=== PATIENT | male | born 1940 | race Caucasian/White ===

== ENCOUNTER 2016-09-02 13:13 | Inpatient (IN) | payer OTHER ==
[2016-09-02] MEDS ORDERED: morphine CARPU-JECT 4 MG/1 ML DISP.SYRIN IVPUSH ONE ×3 (13:26→20:30)
[2016-09-02] MEDS ORDERED: ONDANSETRON 4 MG/2 ML VIAL IVPUSH ONE (13:26)
--- NOTE | 2016-09-02 13:26 | PDOC ---
History of Present Illness - General History Source: Patient, Family Exam Limitations: No Limitations - History of Present Illness Initial Comments: 09/02/16 13:47 The patient is a 76 year old male with a significant past medical history of CHF , hypertension, stage IV prostate cancer, and CVA, sent from home hospice to the Emergency Department with difficulty breathing and back pain. The patients family reports that this morning the patients hospice nurse suggested that he be sent to the ER due to his difficulty breathing. The patients family admits that he was moaning in pain, having trouble breathing, and had an elevated blood pressure. The patient admits that he currently takes Percocet for back pain, though he admits to stomach pain secondary to the Percocet. The patients family states that he took Percocet, aspirin, and Lasix about one hour ago, prior to arrival. The patient has been in hospice care for a few months. The patient denies chest pain, or palpitations. Patient denies fever, cough, and chills. Patient denies nausea, vomiting, and diarrhea. PCP: in-home hospice Engine Installer: Dr. Xavier <Juliane Garcia - Last Filed: 09/02/16 17:18> <Dipika Alvarado - Last Filed: 09/02/16 18:50> - General Chief Complaint: Shortness of Breath Stated Complaint: SOB Time Seen by Provider: 09/02/16 13:21 Past History <Juliane Garcia - Last Filed: 09/02/16 17:18> - Past Medical History Cancer: Yes (PROSTATE CANCER,SKIN CANCER) HTN: Yes - Surgical History Abdominal Surgery: Yes (COLON RESECTION) - Immunization History Immunization Up to Date: Yes - Psycho/Social/Smoking Cessation Hx Suicidal Ideation: No Smoking Status: Yes Smoking History: Smoker current status UNK Years of Tobacco Use: 30 (quit 20 years ago) Have you smoked in the past 12 months: No Number of Cigarettes Smoked Daily: 0 If you are a former smoker, when did you quit?: 25 years ago Hx Alcohol Use: No Drug/Substance Use Hx: No Substance Use Type: None Hx Substance Use Treatment: No <Dipika Alvarado - Last Filed: 09/02/16 18:50> - Past Medical History Allergies/Adverse Reactions: Allergies Allergy/AdvReac Type Severity Reaction Status Date / Time No Known Allergies Allergy Verified 12/25/15 04:22 Home Medications: Ambulatory Orders Aspirin Coated [Ecotrin -] 325 mg PO DAILY #0 tablet. 03/14/12 Valsartan [Diovan] 80 mg PO DAILY 12/25/15 Furosemide [Lasix -] 40 mg PO BID #60 tablet 12/30/15 Alprazolam [Xanax] 0.25 mg PO BID 09/02/16 Oxycodone HCl/Acetaminophen [Percocet 5-325 mg Tablet] 1 tab PO Q6H 09/02/16 Review of Systems - Review of Systems Able to Perform ROS?: Yes Comments:: 09/02/16 13:47 GENERAL/CONSTITUTIONAL: + high blood pressure. No fever or chills. No weakness. HEAD, EYES, EARS, NOSE AND THROAT: No change in vision. No ear pain or discharge. No sore throat. CARDIOVASCULAR: + difficulty breathing. No chest pain. RESPIRATORY: No cough, wheezing, or hemoptysis. GASTROINTESTINAL: No nausea, vomiting, diarrhea or constipation. GENITOURINARY: No dysuria, frequency, or change in urination. MUSCULOSKELETAL: + back pain. No joint or muscle swelling or pain. No neck. SKIN: No rash NEUROLOGIC: No headache, vertigo, loss of consciousness, or change in strength/ sensation. ENDOCRINE: No increased thirst. No abnormal weight change. HEMATOLOGIC/LYMPHATIC: No anemia, easy bleeding, or history of blood clots. ALLERGIC/IMMUNOLOGIC: No hives or skin allergy. <Juliane Garcia - Last Filed: 09/02/16 17:18> *Physical Exam - Vital Signs Last Vital Signs Temp Pulse Resp BP Pulse Ox 97.7 F 158 H 24 130/96 95 09/02/16 13:25 09/02/16 13:25 09/02/16 13:25 09/02/16 13:25 09/02/16 13:25 <Juliane Garcia - Last Filed: 09/02/16 17:18> - Physical Exam Comments: GENERAL: Awake, alert, and fully oriented, in no acute distress HEAD: No signs of trauma EYES: PERRLA, EOMI, sclera anicteric, conjunctiva clear ENT: Auricles normal inspection, hearing grossly normal, nares patent, oropharynx clear without exudates. Moist mucosa NECK: Normal ROM, supple, no lymphadenopathy, JVD, or masses LUNGS: Dec air entry at bases B/L. No wheezes, and no crackles HEART: Tachycardic, normal S1 and S2, no murmurs, rubs or gallops ABDOMEN: Soft, nontender, normoactive bowel sounds. No guarding, no rebound. No masses EXTREMITIES: Normal range of motion, no edema. No clubbing or cyanosis. No cords, erythema, or tenderness NEUROLOGICAL: Cranial nerves II through XII grossly intact. Normal speech, normal gait SKIN: Warm, Dry, normal turgor, no rashes or lesions noted. <Dipika Alvarado - Last Filed: 09/02/16 18:50> ED Treatment Course - LABORATORY CBC & Chemistry Diagram: 09/02/16 14:15 09/02/16 15:45 - RADIOLOGY Radiograph Interpretation: 09/02/16 15:13 Chest XRay As reviewed by Dr. Rahul Kern IMPRESSION: Airspace opacities in bilateral lower lung zones. Right pleural effusion is suggested. <Juliane Garcia - Last Filed: 09/02/16 17:18> - LABORATORY CBC & Chemistry Diagram: 09/02/16 14:15 09/02/16 15:45 - RADIOLOGY Radiology Studies Ordered: Category Date Time Status CHEST X-RAY PORTABLE* [RAD] Stat Radiology 09/02/16 13:20 Ordered <Dipika Alvarado - Last Filed: 09/02/16 18:50> Medical Decision Making - Medical Decision Making 09/02/16 15:06 Dr. Xavier was called at his office at 2:41. Awaiting call back. 09/02/16 15:46 Dr. Barr returned call and spoke to Dr. Alvarado about the patient's care. Dr. Torres was called at her office at 3:47. Awaiting call back. 09/02/16 17:01 Dr. Torres was called at her office at 4:19. Awaiting call back. 09/02/16 17:18 Dr. Torres was called at her cell at 5:[address] Alvarado about the patient's care. <Juliane Garcia - Last Filed: 09/02/16 17:18> - Critical Care Time Total Critical Care Time (minutes): 35 Critical Care Statement: The care of this patient involved high complexity decision making to prevent further life threatening deterioration of the patient 's condition and/or to evalute & treat vital organ system(s) failure or risk of failure. - Medical Decision Making Patient's initial EKG appeared to be sinus tach. Heart rate was ranging between 130s-160s. He has history of severe CHF with very low EF (~14% on last echo). Did not give CCB or B-evelin initially, for risk of worsening his condition if it was compensatory for CHF. He was more comfortable with BiPAP and pain meds. CXR appeared fluid-overloaded. Trop was positive. Discussed with Dr. Roman, who came to evaluate patient. As she was about to go into his room, HR dropped to 80s, at which time it became apparent that he had SVT. Will admit, as he is not comfortable going back to hospice in this condition. Will admit him for medical treatment and stabilization, as this is potentially reversible and will affect his quality of life. Then can reassess hospice placement again. D/w Dr. Torres- will admit to tele, as HR is now in the 80s. <Dipika Alvarado - Last Filed: 09/02/16 18:50> *DC/Admit/Observation/Transfer - Attestations Scribe Attestion: 09/02/16 13:49 Documentation prepared by Juliane Garcia, acting as medical educator for Dipika Alvardao MD. <Juliane Garcia - Last Filed: 09/02/16 17:18> - Discharge Dispostion Admit: Yes <Dipika Alvarado - Last Filed: 09/02/16 18:50> Diagnosis at time of Disposition: SVT (supraventricular tachycardia) CHF (congestive heart failure) Qualifiers: Congestive heart failure type: unspecified congestive heart failure type Congestive heart failure chronicity: acute on chronic Qualified Code(s): I50.9 - Heart failure, unspecified - Discharge Dispostion Condition at time of disposition: Guarded
[2016-09-02 13:28] VITALS: BMI 22.3
[2016-09-02] MEDS ORDERED: morphine CARPU-JECT 4 MG/1 ML DISP.SYRIN ONE (13:45)
[2016-09-02] MEDS ORDERED: ONDANSETRON 4 MG/2 ML VIAL ONE (13:45)
[2016-09-02] MEDS ORDERED: FUROSEMIDE 40 MG/4 ML INJECTABLE VIAL IVPUSH ONE (13:51)
[2016-09-02 14:29] LABS: BASOPHIL 0.7 % (0-2.0); MCH 30.9 pg (25.7-33.7); MCHC 33.5 g/dl (32.0-35.9); MEAN CELL VOLUME 92.1 fl (80-96); MEAN PLT VOLUME 8.4 fl (7.5-11.1); NEUTROPHILS 76.9 % (42.8-82.8); PLATELET COUNT 264 K/MM3 (134-434); RDW 14.8 % (11.9-15.9); WHITE BLOOD COUNT 10.2 K/mm3 (4.0-10.0)
[2016-09-02 15:00] LABS: ALBUMIN 3.5 g/dl (3.4-5.0); ANION GAP 13 (8-16); BILIRUBIN,TOTAL 0.8 mg/dL (0.2-1.0); CALCIUM 8.9 mg/dL (8.5-10.1); CO2 25 mmol/L (21-32); COCKROFT - GAULT 62.49; GLUCOSE,RANDOM 93 mg/dL (74-106); SGPT/ALT 20 U/L (12-78); TOT PROT 7.8 g/dl (6.4-8.2)
[2016-09-02 15:13] LABS: ALK PHOS 134 U/L (45-117); TROPONIN I 3.92 ng/ml (0.00-0.05)
--- NOTE | 2016-09-02 16:01 | EKG ---
Test Reason : Blood Pressure : / mmHG Vent. Rate : 137 BPM Atrial Rate : 131 BPM P-R Int : 000 ms QRS Dur : 094 ms QT Int : 370 ms P-R-T Axes : 000 016 047 degrees QTc Int : 558 ms SUPRAVENTRICULAR TACHYCARDIA NONSPECIFIC ST ABNORMALITY ABNORMAL ECG WHEN COMPARED WITH ECG OF 01-FEB-2016 19:54, VENT. RATE HAS INCREASED BY 53 BPM Confirmed by LUCIO CARBAJAL MD ([id number]) on 09/02/2016 4:01:31 PM Referred By: Confirmed By:LUCIO CARBAJAL MD
--- NOTE | 2016-09-02 16:03 | EKG ---
Test Reason : Blood Pressure : / mmHG Vent. Rate : 149 BPM Atrial Rate : 149 BPM P-R Int : 176 ms QRS Dur : 088 ms QT Int : 202 ms P-R-T Axes : 038 018 231 degrees QTc Int : 318 ms SUPRAVENTRICULAR TACHYCARDIA MINIMAL VOLTAGE CRITERIA FOR LVH, MAY BE NORMAL VARIANT MARKED ST ABNORMALITY, POSSIBLE INFERIOR SUBENDOCARDIAL INJURY ABNORMAL ECG Confirmed by LUCIO CARBAJAL MD ([id number]) on 09/02/2016 4:03:39 PM Referred By: Confirmed By:LUCIO CARBAJAL MD
--- NOTE | 2016-09-02 16:06 | CON.CARD ---
Cardiology Consult (text) - Consultation Consultation Note: cc: sob hpi: 76 m on hospice with hx systolic cardiomypathy, atach/aflutter, prostate ca on chemo/hormones, cva, htn, hld here with sob/tachycardia noted to have nstemi. Woke up from sleep with acute onset of sob with diaphoresis the evening prior to admission. Recently with mild increase in lower extremity edema. Also with recent fall and since then + back pain. chronic abdominal pain, refuses to take metoprolol. No cp, palps, dizzy, loc, pnd, orthopnea. Started on bipap and given morphine in ER with spontaneous conversion from SVT to SR. pmh: per hpi psh: nc social: ex tob fam: no premature cad scd ros: per hpi; no nvd, cough, fever, nasal congestion, GABRIEL, vision changes, wt loss, hematuria, rash meds: Ambulatory Orders Aspirin Coated [Ecotrin -] 325 mg PO DAILY #0 tablet. 03/14/12 Leuprolide Acetate [Eligard] 7.5 mg ASDIR 12/25/15 Valsartan [Diovan] 80 mg PO DAILY 12/25/15 Furosemide [Lasix -] 40 mg PO BID #60 tablet 12/30/15 Metoprolol Succinate [Toprol XL -] 75 mg PO BID #60 tab.sr.24h 12/30/15 pe: Vital Signs - 24 hr 09/02/16 09/02/16 09/02/16 13:13 13:25 14:04 Temperature 97.7 F Pulse Rate 158 H 158 H 151 H Pulse Rate [ Right] Respiratory 24 Rate Blood Pressure 130/96 Blood Pressure [Right Arm] O2 Sat by Pulse 95 95 100 Oximetry (%) 09/02/16 15:31 Temperature Pulse Rate Pulse Rate [ 75 Right] Respiratory 29 H Rate Blood Pressure Blood Pressure 145/100 [Right Arm] O2 Sat by Pulse 100 Oximetry (%) Intake & Output 08/31/16 09/01/16 09/02/16 09/03/16 07:59 07:59 07:59 07:59 Weight 160 lb nad, no jvd on bipap RRR, s1s2 no mrg minimal bibasilar crackles, nl eff aaox3 1+ le edema bl, no c/c pos dp pt no jaundice diaphoresis abd soft + tenderness, nd pos bs CBC, BMP 09/02/16 14:15 Laboratory Tests 02/01/16 09/02/16 18:32 14:15 Total Bilirubin 0.8 AST TNP ALT 20 D Alkaline Phosphatase 134 H D Creatine Kinase TNP Troponin I 3.92 H* D B-Natriuretic Peptide 5263.49 H 83011.34 H Albumin 3.5 ecg 09/02: SVT 149 bpm, inferolateral STD cxr: bibasilar opacities. Rt pl effusion. echo 12/2015: sev dec lvef, global hk, nl lv size, nl rv, mod mr, mild tr a/p: NSTEMI - demand vs. ACS. Patient is in hospice. Had long discussion regarding risk benefit of AC for ACS. Decline heparin drip due to continuous IV and frequent lab draws. Will think about lovenox. Uncertain about the bleeding risk and longer half life for reversal. Amenable to ASA. - Counseled that if patient has flat troponin trend will not treat as ACS, but if troponins rise overnight, will need to make a decision regarding use of lovenox in am. - ASA, statin. - patient currently declines metoprolol b/c of GI discomfort will add on if needed overnight. con't home valsartan 80 mg/day - repeat echo acute exacerbation of systolic chf: - cardiomyopathy first diagnosed 2015, ? tachymyopathy from asympt rapid AFL. dr givens discussed further ischemic w/u (nuclear stress test, cath) with pt and daughter on past admit and they declined further testing given his advanced prostate cancer/poor prognosis. - previously diuresed with lasix 40 iv bid, will initiate same regimen. SVT/ prior h/o AFL with 2:1 > variable conduction--rapid HR (130s) -CHADS VASC 6--on prior admit had extensive discussion with pt and family about competing risks of stroke and bleeding; --> concern over bleeding side effects and declined AC. -Here with SVT to 140's-150's --> spontaneous conversion to SR. - patient declining toprol due to side effects. Will resume if needed. electrolyte monitoring. htn: - home meds hld: - statin prostate Ca: -per h/o CVA/TIA: -family confirms this, ? details Goals of care - patient is in hospice. Ongoing discussions with patient and family regarding risk/benefit of any interventions.
[2016-09-02] MEDS ORDERED: FUROSEMIDE 40 MG/4 ML INJECTABLE VIAL ONE (16:43)
[2016-09-03 00:59] LABS: TROPONIN I 6.85 ng/ml (0.00-0.05)
--- NOTE | 2016-09-03 01:02 | HP ---
Admitting History and Physical - Admission History of Present Illness: The patient is a 76 year old male with a significant past medical history of CHF , hypertension, stage IV prostate cancer, and CVA, sent from home hospice to the Emergency Department with difficulty breathing and back pain. The patients family reports that this morning the patients hospice nurse suggested that he be sent to the ER due to his difficulty breathing. The patients family admits that he was moaning in pain, having trouble breathing, and had an elevated blood pressure. The patient admits that he currently takes Percocet for back pain, though he admits to stomach pain secondary to the Percocet. History Source: Patient, Medical Record - Past Medical History BENEFITS REPRESENTATIVE: Yes: CVA (Right ) Cardiovascular: Yes: HTN Pulmonary: Yes: COPD Gastrointestinal: Yes: Constipation, Diverticulitis, Peptic Ulcer Disease Hepatobiliary: Yes: Cholelithiasis Renal/: Yes: Other (Prostate cancer treated with RT seeds and now hormonaltherapy (Leuprolide) for metastatic disease) Heme/Onc: Yes: Other (Metastatic prostate CA to bone) Psych: Yes: Anxiety - Past Surgical History Past Surgical History: Yes: Appendectomy, Colectomy (sigmoid colectomy for diverticulitis with simultaneous appendectomy) - Advance Directives Advance Directives: Yes: Health Care Proxy - Smoking History Smoking history: Smoker current status UNK Have you smoked in the past 12 months: No Aproximately how many cigarettes per day: 0 If you are a former smoker, when did you quit?: 25 years ago - Alcohol/Substance Use Hx Alcohol Use: No - Social History ADL: Family Assistance Occupation: retired History of Recent Travel: No Home Medications - Allergies Allergies/Adverse Reactions: Allergies Allergy/AdvReac Type Severity Reaction Status Date / Time No Known Allergies Allergy Verified 12/25/15 04:22 - Home Medications Home Medications: Ambulatory Orders Aspirin Coated [Ecotrin -] 325 mg PO DAILY #0 tablet. 03/14/12 Valsartan [Diovan] 80 mg PO DAILY 12/25/15 Furosemide [Lasix -] 40 mg PO BID #60 tablet 12/30/15 Alprazolam [Xanax] 0.25 mg PO BID 09/02/16 Docusate Sodium [Colace -] 100 mg PO DAILY 09/02/16 Esomeprazole Magnesium [Nexium 24Hr] 20 mg PO DAILY 09/02/16 Oxycodone HCl/Acetaminophen [Percocet 5-325 mg Tablet] 1 tab PO Q6H 09/02/16 Family Disease History - Family Disease History Family History: Unable to Obtain Family Disease History: Diabetes: Mother ( 57 CHF), Heart Disease: Mother Review of Systems - Review of Systems Constitutional: reports: Loss of Appetite, Weakness Eyes: reports: No Symptoms HENT: reports: No Symptoms Neck: reports: No Symptoms Cardiovascular: reports: Shortness of Breath Respiratory: reports: SOB Gastrointestinal: reports: No Symptoms Musculoskeletal: reports: Back Pain Physical Examination Vital Signs: Vital Signs Temperature 98.4 F 09/02/16 22:00 Pulse Rate 89 09/02/16 22:00 Respiratory Rate 20 09/02/16 22:00 Blood Pressure 157/88 09/02/16 22:00 O2 Sat by Pulse Oximetry (%) 94 L 09/02/16 21:00 Constitutional: Yes: Other (Pale) Eyes: Yes: WNL HENT: Yes: WNL Neck: Yes: WNL Cardiovascular: Yes: Tachycardia Respiratory: Yes: Rales Gastrointestinal: Yes: WNL, Normal Bowel Sounds, Soft Edema: LLE: Trace, RLE: Trace Neurological: Yes: WNL ...Motor Strength: WNL Problem List - Problems (1) SVT (supraventricular tachycardia) Assessment/Plan: Monitor on tele Code(s): I47.1 - SUPRAVENTRICULAR TACHYCARDIA (2) NSTEMI (non-ST elevated myocardial infarction) Assessment/Plan: Cont to monitor tropnin/cpk As per cardio Check echo Code(s): I21.4 - NON-ST ELEVATION (NSTEMI) MYOCARDIAL INFARCTION (3) CHF (congestive heart failure) Assessment/Plan: Acute on chronic systolic heart failuer Cont IV lasix Monitor electrolytes Cardio consult Check echo Code(s): I50.9 - HEART FAILURE, UNSPECIFIED Qualifiers: Congestive heart failure type: unspecified congestive heart failure type Congestive heart failure chronicity: acute on chronic Qualified Code(s ): I50.9 - Heart failure, unspecified (4) HLD (hyperlipidemia) Assessment/Plan: Cont lipitor Code(s): E78.5 - HYPERLIPIDEMIA, UNSPECIFIED (5) HTN (hypertension) Assessment/Plan: Pt has been refusing meds Code(s): I10 - ESSENTIAL (PRIMARY) HYPERTENSION (6) Prostate cancer metastatic to bone Code(s): C61 - MALIGNANT NEOPLASM OF PROSTATE C79.51 - SECONDARY MALIGNANT NEOPLASM OF BONE
[2016-09-03] MEDS ORDERED: OXYCODONE/APAP 5/325MG COMBO TABLET PO PRN (01:48)
[2016-09-03] MEDS ORDERED: oxyCODONE HCL 5 MG TABLET PO PRN (03:39)
[2016-09-03] MEDS ORDERED: VALSARTAN 80 MG TABLET (UD) PO ONE (03:45)
[2016-09-03] MEDS ORDERED: METOPROLOL SUCCINATE 25 MG TAB.SR.24H (FP) PO ONE (03:45)
[2016-09-03] MEDS: FUROSEMIDE 40 MG/4 ML INJECTABLE VIAL IVPUSH SCH ×2 (07:05→13:42)
[2016-09-03 07:18] LABS: BASOPHIL 0.5 % (0-2.0); EOSINOPHIL 1.8 % (0-4.5); MCH 30.8 pg (25.7-33.7); MCHC 33.5 g/dl (32.0-35.9); MEAN CELL VOLUME 91.8 fl (80-96); MEAN PLT VOLUME 7.7 fl (7.5-11.1); NEUTROPHILS 77.4 % (42.8-82.8); PLATELET COUNT 226 K/MM3 (134-434); RDW 14.3 % (11.9-15.9); WHITE BLOOD COUNT 9.8 K/mm3 (4.0-10.0)
[2016-09-03 07:54] LABS: ALBUMIN 3.2 g/dl (3.4-5.0); ANION GAP 8 (8-16); CALCIUM 9.1 mg/dL (8.5-10.1); CO2 32 mmol/L (21-32); COCKROFT - GAULT 60.15; CREATININE 1.1 mg/dL (0.7-1.3); GLUCOSE,RANDOM 106 mg/dL (74-106); SGOT/AST 83 U/L (15-37)
[2016-09-03] MEDS ORDERED: NITROGLYCERIN 25MG/D5W 250ML 250 ML IVPB SCH (08:00)
[2016-09-03 08:09] LABS: ALK PHOS 127 U/L (45-117); BILIRUBIN,TOTAL 0.7 mg/dL (0.2-1.0); SGPT/ALT 18 U/L (12-78); TOT PROT 6.8 g/dl (6.4-8.2)
[2016-09-03 08:57] LABS: TROPONIN I 4.09 ng/ml (0.00-0.05)
[2016-09-03] MEDS: HEPARIN NA (PORCINE) 5,000 UNITS/ML 1ML VIAL SQ SCH ×3 (09:41→22:00)
[2016-09-03] MEDS: PANTOPRAZOLE 20 MG TABLET (FP) PO SCH (09:43)
[2016-09-03] MEDS: ALPRAZolam 0.25 MG TABLET PO SCH ×3 (09:44→22:00)
[2016-09-03] MEDS: ASPIRIN 325 MG ENTERIC COATED TABLET (FP) PO SCH (09:44)
[2016-09-03] MEDS: VALSARTAN 80 MG TABLET (UD) PO SCH ×2 (09:44→09:58)
[2016-09-03] MEDS ORDERED: METOPROLOL SUCCINATE 25 MG TAB.SR.24H (FP) PO SCH (10:00)
[2016-09-03] MEDS ORDERED: DOCUSATE SODIUM 100 MG CAPSULE (FP) PO SCH (10:00)
--- NOTE | 2016-09-03 11:05 | PN ---
Progress Note (short form) - Note Progress Note: cc: nstemi hpi: no cp palps, +sob but better, +dizzy, no loc; bp still elevated and refusing po meds due to upsetting his stomach; also refusing hep/lovenox injections or drip, no cigs Current Medications Generic Name Dose Route Start Last Admin Trade Name Freq PRN Reason Stop Dose Admin Acetaminophen 325 mg 09/03/16 03:39 Tylenol - PO Q6H PRN PAIN Alprazolam 0.25 mg 09/03/16 10:00 09/03/16 09:59 Xanax - PO Not Given BID E[place]LE Aspirin 325 mg 09/03/16 10:00 09/03/16 09:44 Ecotrin - PO 325 mg DAILY EAG[place] Administration Atorvastatin Calcium 20 mg 09/03/16 22:00 Lipitor - PO HS EAGLE Clonidine HCl 0.2 mg 09/03/16 10:45 Catapres Tts Patch - TD Q7D@1000 EAGLE Furosemide 40 mg 09/03/16 06:00 09/03/16 07:05 Lasix Injection - IVPUSH 40 mg BID@0600,1400 E[place] Administration Heparin Sodium (Porcine) 5,000 unit 09/03/16 10:00 09/03/16 09:59 Heparin - SQ Not Given BID EAGLE Oxycodone HCl 5 mg 09/03/16 03:39 Roxicodone - PO Q6H PRN PAIN Pantoprazole Sodium 20 mg 09/03/16 10:00 09/03/16 09:43 Protonix - PO 20 mg DAILY EAGLE Administration Vital Signs Temp 97.3 F L 09/03/16 02:00 Pulse 94 H 09/03/16 06:00 Resp 20 09/03/16 06:00 BP 189/101 09/03/16 06:00 Pulse Ox 94 L 09/02/16 21:00 Intake & Output 09/02/16 09/02/16 09/03/16 11:59 23:59 11:59 Output Total 750 Balance -750 Weight 160 lb 169 lb 6.4 oz Output: Urine 750 Void 750 Other: Voiding Method Urinal Bedside Commode Height 5 ft 11 in Body Mass Index (BMI) 22.3 Weight Measurement Method Standing Scale Weight Measurement Method Standing Scale nad, no jvd on bipap RRR, s1s2 no mrg minimal bibasilar crackles, nl eff aaox3 1+ le edema bl, no c/c pos dp pt no jaundice diaphoresis abd soft + tenderness, nd pos bs Laboratory Last Values WBC 9.8 K/mm3 (4.0-10.0) 09/03/16 05:35 RBC 4.27 M/mm3 (4.00-5.60) 09/03/16 05:35 Hgb 13.2 GM/dL (11.7-16.9) 09/03/16 05:35 Hct 39.2 % (35.4-49) 09/03/16 05:35 MCV 91.8 fl (80-96) 09/03/16 05:35 MCHC 33.5 g/dl (32.0-35.9) 09/03/16 05:35 RDW 14.3 % (11.9-15.9) 09/03/16 05:35 Plt Count 226 K/MM3 (134-434) 09/03/16 05:35 MPV 7.7 fl (7.5-11.1) 09/03/16 05:35 Neutrophils % 77.4 % (42.8-82.8) 09/03/16 05:35 Lymphocytes % 9.4 % (8-40) 09/03/16 05:35 Monocytes % 10.9 % (3.8-10.2) H 09/03/16 05:35 Eosinophils % 1.8 % (0-4.5) 09/03/16 05:35 Basophils % 0.5 % (0-2.0) 09/03/16 05:35 Sodium 140 mmol/L (136-145) 09/03/16 05:35 Potassium 3.8 mmol/L (3.5-5.1) 09/03/16 05:35 Chloride 100 mmol/L (98-107) 09/03/16 05:35 Carbon Dioxide 32 mmol/L (21-32) D 09/03/16 05:35 Anion Gap 8 (8-16) 09/03/16 05:35 BUN 28 mg/dL (7-18) H 09/03/16 05:35 Creatinine 1.1 mg/dL (0.7-1.3) 09/03/16 05:35 Creat Clearance w eGFR > 60 (>60) 09/03/16 05:35 Random Glucose 106 mg/dL (74-106) 09/03/16 05:35 Calcium 9.1 mg/dL (8.5-10.1) 09/03/16 05:35 Total Bilirubin 0.7 mg/dL (0.2-1.0) 09/03/16 05:35 AST 83 U/L (15-37) H D 09/03/16 05:35 ALT 18 U/L (12-78) 09/03/16 05:35 Alkaline Phosphatase 127 U/L (45-117) H 09/03/16 05:35 Creatine Kinase 254 IU/L (39-308) D 09/03/16 05:35 Creatine Kinase Index 5.1 % (0.0-5.0) H 09/02/16 23:00 CK-MB (CK-2) 16.023 ng/ml (0.5-3.6) H 09/02/16 23:00 CK-MB (CK-2) Rel Index Cancelled 09/02/16 23:00 Troponin I 4.09 ng/ml (0.00-0.05) H* D 09/03/16 05:35 B-Natriuretic Peptide 73089.34 pg/ml (5-450) H 09/02/16 14:15 Total Protein 6.8 g/dl (6.4-8.2) 09/03/16 05:35 Albumin 3.2 g/dl (3.4-5.0) L 09/03/16 05:35 ecg 09/02: SVT 149 bpm, inferolateral STD cxr: bibasilar opacities. Rt pl effusion. echo 12/2015: sev dec lvef, global hk, nl lv size, nl rv, mod mr, mild tr tele: sr (nsvt 4 beats) a/p: NSTEMI - rise and fall of trops c/w nstemi - no cp at present - pt refusing po meds and hep gtt or lovenox - d/w family who wants pt comfort care only and also does not want hep gtt/ lovenox - echo done, pending - cont tele, asa, statin - refuses arb, bb - pall care consult as goals of care need to be addressed acute exacerbation of systolic chf: - cardiomyopathy first diagnosed 2015, ? tachymyopathy from asympt rapid AFL. dr givens discussed further ischemic w/u (nuclear stress test, cath) with pt and daughter on past admit and they declined further testing given his advanced prostate cancer/poor prognosis. - previously diuresed with lasix 40 iv bid, will cont same here, cr stable. SVT/ prior h/o AFL with 2:1 > variable conduction--rapid HR (130s): -CHADS VASC 6--on prior admit had extensive discussion with pt and family about competing risks of stroke and bleeding; --> concern over bleeding side effects and declined AC. -Here with SVT to 140's-150's --> spontaneous conversion to SR. -patient declining toprol due to side effects. -cont tele htn: - pt refusing po meds. will try clonidine patch. hld: - statin if pt allows prostate Ca: -per h/o CVA/TIA: -family confirms this, ? details Goals of care - patient is in hospice. Ongoing discussions with patient and family regarding risk/benefit of any interventions.
[2016-09-03] MEDS ORDERED: cloNIDine-TTS 0.2 MG/24 HOURS PATCH.TDWK TD SCH (12:00)
[2016-09-03] MEDS: ACETAMINOPHEN 325 MG TABLET (FP) PO PRN (22:00)
[2016-09-03] MEDS: ATORVASTATIN CA 20 MG TABLET (FP) PO SCH (22:00)
[2016-09-04] MEDS ORDERED: METOPROLOL TARTRATE 5 MG/5 ML VIAL ONE (02:19)
[2016-09-04] MEDS ORDERED: METOPROLOL TARTRATE 5 MG/5 ML VIAL IVPB ONE (02:30)
[2016-09-04] MEDS: FUROSEMIDE 40 MG/4 ML INJECTABLE VIAL IVPUSH SCH ×2 (06:22→15:37)
[2016-09-04] MEDS: ASPIRIN 325 MG ENTERIC COATED TABLET (FP) PO SCH (09:47)
[2016-09-04] MEDS: HEPARIN NA (PORCINE) 5,000 UNITS/ML 1ML VIAL SQ SCH ×2 (09:47→21:47)
[2016-09-04] MEDS: PANTOPRAZOLE 20 MG TABLET (FP) PO SCH (09:47)
[2016-09-04] MEDS: ALPRAZolam 0.25 MG TABLET PO SCH ×2 (09:47→21:48)
[2016-09-04] MEDS ORDERED: oxyCODONE HCL 5 MG TABLET PO PRN (11:59)
--- NOTE | 2016-09-04 13:22 | PN ---
Progress Note (short form) - Note Progress Note: cc: nstemi hpi: no cp palps, sob, dizziness. ambulating. + back pain and stomach discomfort persists. today states he is willing to take valsartan. no cigs Current Medications Acetaminophen (Tylenol -) 325 mg PO Q6H PRN PRN Reason: PAIN Last Admin: 09/03/16 22:00 Dose: 325 mg Alprazolam (Xanax -) 0.25 mg PO BID [facility] Last Admin: 09/04/16 09:47 Dose: 0.25 mg Aspirin (Ecotrin -) 325 mg PO DAILY [facility] Last Admin: 09/04/16 09:47 Dose: 325 mg Atorvastatin Calcium (Lipitor -) 20 mg PO HS [facility] Last Admin: 09/03/16 22:00 Dose: Not Given Clonidine HCl (Catapres Tts Patch -) 0.2 mg TD Q7D@1000 [facility] Last Admin: 09/03/16 13:42 Dose: 0.2 mg Furosemide (Lasix Injection -) 40 mg IVPUSH BID@0600,1400 [facility] Last Admin: 09/04/16 06:22 Dose: 40 mg Heparin Sodium (Porcine) (Heparin -) 5,000 unit SQ BID [facility] Last Admin: 09/04/16 09:47 Dose: 5,000 unit Oxycodone HCl (Roxicodone -) 10 mg PO Q6H PRN PRN Reason: PAIN Pantoprazole Sodium (Protonix -) 20 mg PO DAILY [facility] Last Admin: 09/04/16 09:47 Dose: 20 mg Vital Signs - 24 hr 09/03/16 09/03/16 09/03/16 15:18 18:00 21:00 Temperature 98.4 F 97.4 F L Pulse Rate 88 85 Respiratory 20 20 20 Rate Blood Pressure 127/70 115/65 O2 Sat by Pulse 95 Oximetry (%) 09/03/16 09/04/16 09/04/16 22:00 02:00 02:34 Temperature 97.9 F 97.9 F Pulse Rate 94 H 149 H 144 H Respiratory 18 20 Rate Blood Pressure 107/62 113/68 113/62 O2 Sat by Pulse Oximetry (%) 09/04/16 09/04/16 09/04/16 06:46 09:00 09:15 Temperature 98.1 F 98 F Pulse Rate 133 H 140 H Respiratory 16 24 24 Rate Blood Pressure 135/76 100/58 O2 Sat by Pulse 96 Oximetry (%) 09/04/16 09/04/16 09/04/16 09:16 10:51 12:00 Temperature Pulse Rate 140 H Respiratory 22 Rate Blood Pressure 90/50 105/49 O2 Sat by Pulse 96 Oximetry (%) Intake & Output 09/02/16 09/03/16 09/04/16 09/05/16 07:59 07:59 07:59 07:59 Intake Total 220 Output Total 750 600 Balance -750 -380 Weight 169 lb 6.4 oz nad, no jvd RRR, s1s2 no mrg minimal bibasilar crackles, nl eff aaox3 no le edema bl, no c/c pos dp pt no jaundice diaphoresis abd soft + tenderness, nd pos bs no CBC, BMP ecg 09/02: SVT 149 bpm, inferolateral STD cxr: bibasilar opacities. Rt pl effusion. echo 12/2015: sev dec lvef, global hk, nl lv size, nl rv, mod mr, mild tr tele: sr with intermittent svt, pac's chest CT: report pending. reviewed images, minimal rt pleural effusion a/p: 76 m on hospice with hx systolic cardiomypathy, atach/aflutter, prostate ca on chemo/hormones, cva, htn, hld here with sob/tachycardia noted to have nstemi. NSTEMI - rise and fall of trops c/w nstemi - no cp at present - pt refusing po meds and hep gtt or lovenox - d/w family who wants pt comfort care only and also does not want hep gtt/ lovenox - echo done, pending - cont tele, asa, statin - has been refusing arb, bb - pall care consult as goals of care need to be addressed acute exacerbation of systolic chf: - cardiomyopathy first diagnosed 2015, ? tachymyopathy from asympt rapid AFL. dr givens discussed further ischemic w/u (nuclear stress test, cath) with pt and daughter on past admit and they declined further testing given his advanced prostate cancer/poor prognosis. - previously diuresed with lasix 40 iv bid, given same here. - 09/04 bp running low, no further LE edema. will hold further diuresis. Repeat bmp in am and reassess need for further IV diuresis vs. transition back to prior po regimen 40 mg/day SVT/ prior h/o AFL with 2:1 > variable conduction--rapid HR (130s): -CHADS VASC 6--on prior admit had extensive discussion with pt and family about competing risks of stroke and bleeding; --> concern over bleeding side effects and declined AC. -Here with SVT to 140's-150's --> spontaneous conversion to SR. -patient declining toprol due to side effects. - intermittent SVT on tele, self-limited episodes. Can give PRN IV metoprolol if needed. -cont tele htn: - pt refusing po meds. --> started clonidine patch. - 09/04 bp now running low, will stop clonidine patch. Patient today states he is amenable to resuming home valsartan 80 mg/day. If in the future refuses again, can also consider ntg patch. hld: - statin if pt allows prostate Ca: -per h/o CVA/TIA: -family confirms this, ? details Goals of care - patient is in hospice. Ongoing discussions with patient and family regarding risk/benefit of any interventions.
[2016-09-04] MEDS: oxyCODONE HCL 5 MG TABLET PO PRN (21:47)
[2016-09-04] MEDS: ACETAMINOPHEN 325 MG TABLET (FP) PO PRN (21:47)
[2016-09-04] MEDS: ATORVASTATIN CA 20 MG TABLET (FP) PO SCH (21:48)
[2016-09-05] MEDS: ALPRAZolam 0.25 MG TABLET PO SCH ×2 (12:16→22:11)
[2016-09-05] MEDS: HEPARIN NA (PORCINE) 5,000 UNITS/ML 1ML VIAL SQ SCH ×2 (12:16→22:10)
[2016-09-05] MEDS: PANTOPRAZOLE 20 MG TABLET (FP) PO SCH (12:16)
[2016-09-05] MEDS: ASPIRIN 325 MG ENTERIC COATED TABLET (FP) PO SCH (12:16)
--- NOTE | 2016-09-05 13:37 | CONSULT ---
Consult Consult Specialty:: Oncology Reason for Consultation:: Metastatic prostate cancer - History of Present Illness Chief Complaint: History obtained from family members. Has prostate cancer approx 4 years, initially treated with local RTX, more recently diagnosed with metastatic skeletal disease, had been on hormonal therapy, poorly tolerated ( abdominal pain), all stopped about 6 months ago, and patient placed on hospice. Returns to ER for SOB, attributed to CHF exacerbation, and possible NSTEMI - History Source History Provided By: Patient, Family Member Limitations to Obtaining History: Poor Historian - Past Medical History PARKING CASHIER: Yes: CVA (Right ) Cardio/Vascular: Yes: HTN Pulmonary: Yes: COPD Gastrointestinal: Yes: Constipation, Diverticulitis, Peptic Ulcer Disease Hepatobiliary: Yes: Cholelithiasis Renal/: Yes: Other (Prostate cancer treated with RT seeds and now hormonaltherapy (Leuprolide) for metastatic disease) - Past Surgical History Past Surgical History: Yes: Appendectomy, Colectomy (sigmoid colectomy for diverticulitis with simultaneous appendectomy) - Alcohol/Substance Use Hx Alcohol Use: No - Smoking History Smoking history: Smoker current status UNK Have you smoked in the past 12 months: No Aproximately how many cigarettes per day: 0 If you are a former smoker, when did you quit?: 25 years ago - Social History Usual Living Arrangement: With Child ADL: Family Assistance Occupation: retired History of Recent Travel: No Home Medications - Allergies Allergies/Adverse Reactions: Allergies Allergy/AdvReac Type Severity Reaction Status Date / Time No Known Allergies Allergy Verified 12/25/15 04:22 - Home Medications Home Medications: Ambulatory Orders Aspirin Coated [Ecotrin -] 325 mg PO DAILY #0 tablet. 03/14/12 Valsartan [Diovan] 80 mg PO DAILY 12/25/15 Furosemide [Lasix -] 40 mg PO BID #60 tablet 12/30/15 Alprazolam [Xanax] 0.25 mg PO BID 09/02/16 Docusate Sodium [Colace -] 100 mg PO DAILY 09/02/16 Esomeprazole Magnesium [Nexium 24Hr] 20 mg PO DAILY 09/02/16 Oxycodone HCl/Acetaminophen [Percocet 5-325 mg Tablet] 1 tab PO Q6H 09/02/16 Family Disease History - Family Disease History Family Disease History: Diabetes: Mother ( 57 CHF), Heart Disease: Mother Review of Systems - Review of Systems Constitutional: reports: Weakness Respiratory: reports: SOB on Exertion Gastrointestinal: reports: Abdominal Pain Musculoskeletal: reports: Back Pain Neurological: reports: Unsteady Gait Physical Exam Vital Signs: Vital Signs Temperature 97.9 F 09/05/16 06:00 Pulse Rate 71 09/05/16 06:00 Respiratory Rate 16 09/05/16 06:00 Blood Pressure 143/85 09/05/16 06:00 O2 Sat by Pulse Oximetry (%) 100 09/04/16 21:00 Constitutional: Yes: Calm, Pallor Eyes: Yes: WNL Neck: Yes: Supple, Trachea Midline Cardiovascular: Yes: Regular Rate and Rhythm, S1, S2 Respiratory: Yes: Regular, CTA Bilaterally Gastrointestinal: Yes: Normal Bowel Sounds, Soft Musculoskeletal: Yes: Back Pain, Joint Stiffness Edema: Yes Edema: LLE: Trace, RLE: Trace (Appearnace of recent diuresis.) Neurological: Yes: Alert, Oriented, Unsteady Gait Psychiatric: Yes: Other Labs: CBC, BMP 09/03/16 05:35 09/03/16 05:35 Imaging - Results Cat Scan: Pending Assessment/Plan Metastatic prostate cancer, with known skeletal lesions, including known thoracic lesions. Has been off hormonal therapy for past 6 months at least, by choice. Unclear whether his disease is hormone refractory, and whether hormonal therapy options have been exhausted. Not a candidate for systemic chemotherapy. Warrants review, to determine whether appropriate systemic options are available. Significant QOL issue at this time is back pain - warrants rad onc consult to determine whether any benefit for palliative localized RTX. Also troubled by ongoing abdominal pain. Recommend GI consult, to determine whether any options for palliation exist. Goals of care need careful consideration, noting expected benefit, or harm, of any proposed investigation or intervention, in this patient with poor cardiac prognosis, and with poor tolerance of prior [id number] interventions.
--- NOTE | 2016-09-05 14:21 | PN ---
Progress Note (short form) - Note Progress Note: cc: nstemi s: no cp palps, sob, dizziness. ambulating. + back pain and stomach discomfort persists. today states he is willing to take valsartan. refused blood draw this morning. no cigs Current Medications Acetaminophen (Tylenol -) 325 mg PO Q6H PRN PRN Reason: PAIN Last Admin: 09/04/16 21:47 Dose: 325 mg Alprazolam (Xanax -) 0.25 mg PO BID [facility] Last Admin: 09/05/16 12:16 Dose: 0.25 mg Aspirin (Ecotrin -) 325 mg PO DAILY [facility] Last Admin: 09/05/16 12:16 Dose: 325 mg Atorvastatin Calcium (Lipitor -) 20 mg PO HS [facility] Last Admin: 09/04/16 21:48 Dose: Not Given Heparin Sodium (Porcine) (Heparin -) 5,000 unit SQ BID [facility] Last Admin: 09/05/16 12:16 Dose: Not Given Oxycodone HCl (Roxicodone -) 5 mg PO Q6H PRN Last Admin: 09/04/16 21:47 Dose: 5 mg Pantoprazole Sodium (Protonix -) 20 mg PO DAILY [facility] Last Admin: 09/05/16 12:16 Dose: 20 mg Vital Signs - 24 hr 09/04/16 09/04/16 09/04/16 17:00 21:00 22:12 Temperature 96.9 F L 98.1 F Pulse Rate 77 78 Respiratory 20 20 18 Rate Blood Pressure 102/49 109/52 O2 Sat by Pulse 100 Oximetry (%) 09/05/16 09/05/16 02:00 06:00 Temperature 98.2 F 97.9 F Pulse Rate 71 71 Respiratory 20 16 Rate Blood Pressure 126/67 143/85 O2 Sat by Pulse Oximetry (%) Intake & Output 09/03/16 09/04/16 09/05/16 09/06/16 07:59 07:59 07:59 07:59 Intake Total 220 300 Output Total 750 600 Balance -750 -380 300 Weight 169 lb 6.4 oz 175 lb 6 oz nad, no jvd RRR, s1s2 no mrg ctab, nl eff aaox3 no le edema bl, no c/c pos dp pt no jaundice diaphoresis abd soft + tenderness, nd pos bs no CBC, BMP ecg 09/02: SVT 149 bpm, inferolateral STD cxr: bibasilar opacities. Rt pl effusion. echo 12/2015: sev dec lvef, global hk, nl lv size, nl rv, mod mr, mild tr tele: sr with freq pac's, pvc's chest CT: report pending. reviewed images, minimal rt pleural effusion a/p: 76 m on hospice with hx systolic cardiomypathy, atach/aflutter, prostate ca on chemo/hormones, cva, htn, hld here with sob/tachycardia noted to have nstemi. NSTEMI - rise and fall of trops c/w nstemi - no cp at present - pt refusing po meds and hep gtt or lovenox - d/w family who wants pt comfort care only and also does not want hep gtt/ lovenox - echo done, pending report - cont tele, asa, statin - has been refusing bb. con't arb - pall care consult as goals of care need to be addressed acute exacerbation of systolic chf/sob: - cardiomyopathy first diagnosed 2015, ? tachymyopathy from asympt rapid AFL. dr givens discussed further ischemic w/u (nuclear stress test, cath) with pt and daughter on past admit and they declined further testing given his advanced prostate cancer/poor prognosis. - previously diuresed with lasix 40 iv bid, given same here. - 09/04 bp running low, no further LE edema. will hold further diuresis. Repeat bmp in am and reassess need for further IV diuresis vs. transition back to prior po regimen 40 mg/day - 09/05: Now appears euvolemic. Unable to reassess bmp (pt refusing blood draws ). Patient is not aware that he takes 40 mg PO lasix daily at home. Will consider giving equivalent dose via IV tomorrow. chest CT report pending. SVT/ prior h/o AFL with 2:1 > variable conduction--rapid HR (130s): -CHADS VASC 6--on prior admit had extensive discussion with pt and family about competing risks of stroke and bleeding; --> concern over bleeding side effects and declined AC. -Here with SVT to 140's-150's --> spontaneous conversion to SR. -patient declining toprol due to side effects. - 09/04 intermittent SVT on tele, self-limited episodes. Can give PRN IV metoprolol if needed. - 09/05: no further episodes of SVT. -cont tele htn: - pt refusing po meds. --> started clonidine patch. - 09/04 bp now running low, will stop clonidine patch. Patient today states he is amenable to resuming home valsartan 80 mg/day. If in the future refuses again, can also consider ntg patch. - 09/05: bp now normalized. Will resume home valsartan. hld: - statin if pt allows prostate Ca: -per h/o CVA/TIA: -family confirms this, ? details Goals of care - patient is in hospice. Ongoing discussions with patient and family regarding risk/benefit of any interventions. stable from a CV perspective.
[2016-09-05] MEDS: VALSARTAN 80 MG TABLET (UD) PO SCH (16:00)
[2016-09-05] MEDS: oxyCODONE HCL 5 MG TABLET PO PRN (20:48)
--- NOTE | 2016-09-05 21:06 | PN ---
Progress Note, Physician History of Present Illness: Pt and family still requiring alot of support - Current Medication List Current Medications: Active Medications Acetaminophen (Tylenol -) 325 mg PO Q6H PRN PRN Reason: PAIN Last Admin: 09/04/16 21:47 Dose: 325 mg Alprazolam (Xanax -) 0.25 mg PO BID [facility] Last Admin: 09/05/16 12:16 Dose: 0.25 mg Aspirin (Ecotrin -) 325 mg PO DAILY [facility] Last Admin: 09/05/16 12:16 Dose: 325 mg Atorvastatin Calcium (Lipitor -) 20 mg PO HS [facility] Last Admin: 09/04/16 21:48 Dose: Not Given Heparin Sodium (Porcine) (Heparin -) 5,000 unit SQ BID [facility] Last Admin: 09/05/16 12:16 Dose: Not Given Oxycodone HCl (Roxicodone -) 5 mg PO Q6H PRN Last Admin: 09/05/16 20:48 Dose: 5 mg Pantoprazole Sodium (Protonix -) 20 mg PO DAILY [facility] Last Admin: 09/05/16 12:16 Dose: 20 mg Valsartan (Diovan -) 80 mg PO DAILY [facility] Last Admin: 09/05/16 16:00 Dose: 80 mg - Objective Vital Signs: Vital Signs Temperature 98 F 09/05/16 14:52 Pulse Rate 75 09/05/16 14:52 Respiratory Rate 18 09/05/16 14:52 Blood Pressure 130/70 09/05/16 14:52 O2 Sat by Pulse Oximetry (%) 97 09/05/16 12:00 Constitutional: Yes: Anxious Eyes: Yes: WNL HENT: Yes: WNL Neck: Yes: WNL Cardiovascular: Yes: Tachycardia Respiratory: Yes: Rales Gastrointestinal: Yes: WNL, Normal Bowel Sounds, Soft Edema: LLE: Trace, RLE: Trace Labs: CBC, BMP 09/03/16 05:35 09/03/16 05:35 Problem List - Problems (1) CHF (congestive heart failure) Code(s): I50.9 - HEART FAILURE, UNSPECIFIED Qualifiers: Congestive heart failure type: unspecified congestive heart failure type Congestive heart failure chronicity: acute on chronic Qualified Code(s ): I50.9 - Heart failure, unspecified (2) HLD (hyperlipidemia) Code(s): E78.5 - HYPERLIPIDEMIA, UNSPECIFIED (3) HTN (hypertension) Code(s): I10 - ESSENTIAL (PRIMARY) HYPERTENSION (4) NSTEMI (non-ST elevated myocardial infarction) Code(s): I21.4 - NON-ST ELEVATION (NSTEMI) MYOCARDIAL INFARCTION (5) Prostate cancer metastatic to bone Code(s): C61 - MALIGNANT NEOPLASM OF PROSTATE C79.51 - SECONDARY MALIGNANT NEOPLASM OF BONE (6) SVT (supraventricular tachycardia) Code(s): I47.1 - SUPRAVENTRICULAR TACHYCARDIA
[2016-09-05] MEDS: ATORVASTATIN CA 20 MG TABLET (FP) PO SCH (22:11)
[2016-09-06] MEDS: ALPRAZolam 0.25 MG TABLET PO SCH ×2 (10:32→22:12)
[2016-09-06] MEDS: VALSARTAN 80 MG TABLET (UD) PO SCH (10:32)
[2016-09-06] MEDS: ASPIRIN 325 MG ENTERIC COATED TABLET (FP) PO SCH (10:32)
[2016-09-06] MEDS: HEPARIN NA (PORCINE) 5,000 UNITS/ML 1ML VIAL SQ SCH ×2 (10:34→22:12)
[2016-09-06] MEDS: PANTOPRAZOLE 20 MG TABLET (FP) PO SCH (10:34)
--- NOTE | 2016-09-06 15:12 | PN ---
Progress Note, Physician History of Present Illness: Pt c/o back pain - Current Medication List Current Medications: Active Medications Acetaminophen (Tylenol -) 325 mg PO Q6H PRN PRN Reason: PAIN Last Admin: 09/04/16 21:47 Dose: 325 mg Alprazolam (Xanax -) 0.25 mg PO BID [facility] Last Admin: 09/06/16 10:32 Dose: 0.25 mg Aspirin (Ecotrin -) 325 mg PO DAILY [facility] Last Admin: 09/06/16 10:32 Dose: 325 mg Atorvastatin Calcium (Lipitor -) 20 mg PO HS [facility] Last Admin: 09/05/16 22:11 Dose: Not Given Heparin Sodium (Porcine) (Heparin -) 5,000 unit SQ BID [facility] Last Admin: 09/06/16 10:34 Dose: Not Given Oxycodone HCl (Roxicodone -) 5 mg PO Q6H PRN Last Admin: 09/05/16 20:48 Dose: 5 mg Pantoprazole Sodium (Protonix -) 20 mg PO DAILY [facility] Last Admin: 09/06/16 10:34 Dose: 20 mg Valsartan (Diovan -) 80 mg PO DAILY [facility] Last Admin: 09/06/16 10:32 Dose: 80 mg - Objective Vital Signs: Vital Signs Temperature 98.6 F 09/06/16 14:00 Pulse Rate 72 09/06/16 14:00 Respiratory Rate 20 09/06/16 14:00 Blood Pressure 141/67 09/06/16 14:00 O2 Sat by Pulse Oximetry (%) 99 09/05/16 21:00 Constitutional: Yes: Anxious Eyes: Yes: WNL HENT: Yes: WNL Neck: Yes: WNL Cardiovascular: Yes: WNL, Regular Rate and Rhythm Respiratory: Yes: Diminished Gastrointestinal: Yes: WNL, Normal Bowel Sounds, Soft Labs: CBC, BMP 09/03/16 05:35 09/03/16 05:35 Problem List - Problems (1) CHF (congestive heart failure) Code(s): I50.9 - HEART FAILURE, UNSPECIFIED Qualifiers: Congestive heart failure type: unspecified congestive heart failure type Congestive heart failure chronicity: acute on chronic Qualified Code(s ): I50.9 - Heart failure, unspecified (2) HLD (hyperlipidemia) Code(s): E78.5 - HYPERLIPIDEMIA, UNSPECIFIED (3) HTN (hypertension) Code(s): I10 - ESSENTIAL (PRIMARY) HYPERTENSION (4) NSTEMI (non-ST elevated myocardial infarction) Code(s): I21.4 - NON-ST ELEVATION (NSTEMI) MYOCARDIAL INFARCTION (5) Prostate cancer metastatic to bone Code(s): C61 - MALIGNANT NEOPLASM OF PROSTATE C79.51 - SECONDARY MALIGNANT NEOPLASM OF BONE (6) SVT (supraventricular tachycardia) Code(s): I47.1 - SUPRAVENTRICULAR TACHYCARDIA
--- NOTE | 2016-09-06 18:46 | PN ---
Progress Note (short form) - Note Progress Note: cc: nstemi hpi: no cp palps, sob, dizziness. ambulating. + back pain and stomach discomfort persists. no cigs Current Medications Acetaminophen (Tylenol -) 325 mg PO Q6H PRN PRN Reason: PAIN Last Admin: 09/04/16 21:47 Dose: 325 mg Alprazolam (Xanax -) 0.25 mg PO BID [facility] Last Admin: 09/06/16 10:32 Dose: 0.25 mg Aspirin (Ecotrin -) 325 mg PO DAILY [facility] Last Admin: 09/06/16 10:32 Dose: 325 mg Atorvastatin Calcium (Lipitor -) 20 mg PO HS [facility] Last Admin: 09/05/16 22:11 Dose: Not Given Heparin Sodium (Porcine) (Heparin -) 5,000 unit SQ BID [facility] Last Admin: 09/06/16 10:34 Dose: Not Given Oxycodone HCl (Roxicodone -) 5 mg PO Q6H PRN Last Admin: 09/05/16 20:48 Dose: 5 mg Pantoprazole Sodium (Protonix -) 20 mg PO DAILY [facility] Last Admin: 09/06/16 10:34 Dose: 20 mg Valsartan (Diovan -) 80 mg PO DAILY [facility] Last Admin: 09/06/16 10:32 Dose: 80 mg Vital Signs - 24 hr 09/05/16 09/05/16 09/06/16 21:00 22:00 02:00 Temperature 97.8 F 97.7 F Pulse Rate 72 74 Respiratory 18 18 20 Rate Blood Pressure 135/74 154/78 O2 Sat by Pulse 99 Oximetry (%) 09/06/16 09/06/16 09/06/16 06:00 09:00 10:00 Temperature 97.4 F L 97.0 F L Pulse Rate 86 67 Respiratory 20 19 20 Rate Blood Pressure 150/74 144/80 O2 Sat by Pulse 98 Oximetry (%) 09/06/16 09/06/16 14:00 18:00 Temperature 98.6 F 98.4 F Pulse Rate 72 75 Respiratory 20 19 Rate Blood Pressure 141/67 130/70 O2 Sat by Pulse Oximetry (%) Intake & Output 09/04/16 09/05/16 09/06/16 09/07/16 07:59 07:59 07:59 07:59 Intake Total 220 300 620 Output Total 600 2000 Balance -380 300 -1380 Weight 175 lb 6 oz 173 lb 12.8 oz nad, no jvd RRR, s1s2 no mrg ctab, nl eff aaox3 no le edema bl, no c/c pos dp pt no jaundice diaphoresis abd soft + tenderness, nd pos bs no CBC, BMP ecg 09/02: SVT 149 bpm, inferolateral STD cxr: bibasilar opacities. Rt pl effusion. echo 12/2015: sev dec lvef, global hk, nl lv size, nl rv, mod mr, mild tr tele: sr with pac's. one episode of svt and nsvt. chest CT: report pending. reviewed images, minimal rt pleural effusion a/p: 76 m on hospice with hx systolic cardiomypathy, atach/aflutter, prostate ca on chemo/hormones, cva, htn, hld here with sob/tachycardia noted to have nstemi. NSTEMI - rise and fall of trops c/w nstemi - no cp at present - pt refusing po meds and hep gtt or lovenox - d/w family who wants pt comfort care only and also does not want hep gtt/ lovenox - echo done, pending report - cont tele, asa, statin - has been refusing bb. con't arb - pall care consult as goals of care need to be addressed acute exacerbation of systolic chf/sob: - cardiomyopathy first diagnosed 2015, ? tachymyopathy from asympt rapid AFL. dr givens discussed further ischemic w/u (nuclear stress test, cath) with pt and daughter on past admit and they declined further testing given his advanced prostate cancer/poor prognosis. - previously diuresed with lasix 40 iv bid, given same here. - 09/04 bp running low, no further LE edema. will hold further diuresis. Repeat bmp in am and reassess need for further IV diuresis vs. transition back to prior po regimen 40 mg/day - 09/05: Now appears euvolemic. Unable to reassess bmp (pt refusing blood draws ). chest CT report pending. - 09/06: weight down today off lasix. patient on lasix 40 mg po at home (but per family pt unaware he is taking lasix). Will resume equivalent home lasix dose ( will give IV) tomorrow. SVT/ prior h/o AFL with 2:1 > variable conduction--rapid HR (130s): -CHADS VASC 6--on prior admit had extensive discussion with pt and family about competing risks of stroke and bleeding; --> concern over bleeding side effects and declined AC. -Here with SVT to 140's-150's --> spontaneous conversion to SR. -patient declining toprol due to side effects. - 09/04 intermittent SVT on tele, self-limited episodes. Can give PRN IV metoprolol if needed. - 09/05-09/06: no further significant episodes of SVT. patient declining blood draws, unable to follow up bmp. -cont tele htn: - pt refusing po meds. --> started clonidine patch. - 09/04 bp now running low, will stop clonidine patch. Patient today states he is amenable to resuming home valsartan 80 mg/day. If in the future refuses again, can also consider ntg patch. - 09/05-09/06: bp now normalized. resumed home valsartan. hld: - statin if pt allows prostate Ca: -per h/o CVA/TIA: -family confirms this, ? details Goals of care - patient is in hospice. Ongoing discussions with patient and family regarding risk/benefit of any interventions. stable from a CV perspective.
--- NOTE | 2016-09-06 19:25 | PN ---
Progress Note, Physician History of Present Illness: Pt and family still requiring alot of support Xray of LS spine and ct scan chest reviewed w/ pt - Current Medication List Current Medications: Active Medications Acetaminophen (Tylenol -) 325 mg PO Q6H PRN PRN Reason: PAIN Last Admin: 09/04/16 21:47 Dose: 325 mg Alprazolam (Xanax -) 0.25 mg PO BID [facility] Last Admin: 09/06/16 10:32 Dose: 0.25 mg Aspirin (Ecotrin -) 81 mg PO DAILY [facility] Atorvastatin Calcium (Lipitor -) 20 mg PO HS [facility] Last Admin: 09/05/16 22:11 Dose: Not Given Furosemide (Lasix Injection -) 20 mg IVPUSH DAILY [facility] Heparin Sodium (Porcine) (Heparin -) 5,000 unit SQ BID [facility] Last Admin: 09/06/16 10:34 Dose: Not Given Oxycodone HCl (Roxicodone -) 5 mg PO Q6H PRN Last Admin: 09/05/16 20:48 Dose: 5 mg Pantoprazole Sodium (Protonix -) 20 mg PO DAILY [facility] Last Admin: 09/06/16 10:34 Dose: 20 mg Valsartan (Diovan -) 80 mg PO DAILY [facility] Last Admin: 09/06/16 10:32 Dose: 80 mg - Objective Vital Signs: Vital Signs Temperature 98.4 F 09/06/16 18:00 Pulse Rate 75 09/06/16 18:00 Respiratory Rate 19 09/06/16 18:00 Blood Pressure 130/70 09/06/16 18:00 O2 Sat by Pulse Oximetry (%) 98 09/06/16 09:00 Constitutional: Yes: Calm Eyes: Yes: WNL HENT: Yes: WNL Neck: Yes: WNL Cardiovascular: Yes: WNL, Regular Rate and Rhythm Respiratory: Yes: WNL, Regular, CTA Bilaterally Gastrointestinal: Yes: WNL, Normal Bowel Sounds, Soft Edema: LLE: Trace, RLE: Trace Labs: CBC, BMP 09/03/16 05:35 09/03/16 05:35 Problem List - Problems (1) Abdominal pain Assessment/Plan: Pt staes that he has been having abdominal pain(lower quadrant for over few weeks) Check ct scan abd/pelvis Will get GI consult Code(s): R10.9 - UNSPECIFIED ABDOMINAL PAIN (2) Prostate cancer metastatic to bone Assessment/Plan: Long d/w pt about mets to T9 and T10 Onco consult noted Cont pain management w/ oxycodone Will get Rad/onco to see pt. Family is requesting for palliative care Palliative care consult Code(s): C61 - MALIGNANT NEOPLASM OF PROSTATE C79.51 - SECONDARY MALIGNANT NEOPLASM OF BONE (3) NSTEMI (non-ST elevated myocardial infarction) Assessment/Plan: Troponins have been decreasing As per cardio Pt has been refusing meds Code(s): I21.4 - NON-ST ELEVATION (NSTEMI) MYOCARDIAL INFARCTION (4) CHF (congestive heart failure) Assessment/Plan: Acute on chronic systolic heart failuer Cont po lasix Monitor electrolytes Code(s): I50.9 - HEART FAILURE, UNSPECIFIED Qualifiers: Congestive heart failure type: unspecified congestive heart failure type Congestive heart failure chronicity: acute on chronic Qualified Code(s ): I50.9 - Heart failure, unspecified (5) SVT (supraventricular tachycardia) Assessment/Plan: Heart rate is controlled Code(s): I47.1 - SUPRAVENTRICULAR TACHYCARDIA (6) HTN (hypertension) Assessment/Plan: Cont diovan Code(s): I10 - ESSENTIAL (PRIMARY) HYPERTENSION (7) HLD (hyperlipidemia) Assessment/Plan: Cont lipitor Code(s): E78.5 - HYPERLIPIDEMIA, UNSPECIFIED
[2016-09-06] MEDS: oxyCODONE HCL 5 MG TABLET PO PRN (20:00)
[2016-09-06] MEDS: ACETAMINOPHEN 325 MG TABLET (FP) PO PRN (20:00)
[2016-09-06] MEDS: ATORVASTATIN CA 20 MG TABLET (FP) PO SCH (22:12)
[2016-09-07 07:37] LABS: BASOPHIL 0.9 % (0-2.0); EOSINOPHIL 9.2 % (0-4.5); MCH 31.5 pg (25.7-33.7); MCHC 34.1 g/dl (32.0-35.9); MEAN CELL VOLUME 92.1 fl (80-96); NEUTROPHILS 55.9 % (42.8-82.8); PLATELET COUNT 181 K/MM3 (134-434); RDW 14.2 % (11.9-15.9); WHITE BLOOD COUNT 4.8 K/mm3 (4.0-10.0)
[2016-09-07 07:59] LABS: ALBUMIN 2.7 g/dl (3.4-5.0); ANION GAP 8 (8-16); CALCIUM 8.7 mg/dL (8.5-10.1); CO2 31 mmol/L (21-32); COCKROFT - GAULT 67.88; GLUCOSE,RANDOM 76 mg/dL (74-106); SGOT/AST 18 U/L (15-37); SGPT/ALT 13 U/L (12-78)
[2016-09-07 08:01] LABS: ALK PHOS 83 U/L (45-117); BILIRUBIN,TOTAL 0.4 mg/dL (0.2-1.0); TOT PROT 6.2 g/dl (6.4-8.2)
[2016-09-07] MEDS: ASPIRIN COATED 81 MG TABLET.EC PO SCH (09:39)
[2016-09-07] MEDS: FUROSEMIDE 40 MG/4 ML INJECTABLE VIAL IVPUSH SCH (09:40)
[2016-09-07] MEDS: ALPRAZolam 0.25 MG TABLET PO SCH ×2 (09:40→21:04)
[2016-09-07] MEDS: HEPARIN NA (PORCINE) 5,000 UNITS/ML 1ML VIAL SQ SCH ×2 (09:40→21:04)
[2016-09-07] MEDS: PANTOPRAZOLE 20 MG TABLET (FP) PO SCH (09:40)
[2016-09-07] MEDS: VALSARTAN 80 MG TABLET (UD) PO SCH (09:40)
--- NOTE | 2016-09-07 10:52 | PN ---
Progress Note (short form) - Note Progress Note: cc: nstemi hpi: no cp palps, sob, dizziness. ambulating. + back pain and stomach discomfort persists. agreed to blood draw this morning. no cigs Current Medications Acetaminophen (Tylenol -) 325 mg PO Q6H PRN PRN Reason: PAIN Last Admin: 09/06/16 20:00 Dose: 325 mg Alprazolam (Xanax -) 0.25 mg PO BID [facility] Last Admin: 09/07/16 09:40 Dose: 0.25 mg Aspirin (Ecotrin -) 81 mg PO DAILY [facility] Last Admin: 09/07/16 09:39 Dose: 81 mg Atorvastatin Calcium (Lipitor -) 20 mg PO HS [facility] Last Admin: 09/06/16 22:12 Dose: Not Given Furosemide (Lasix Injection -) 20 mg IVPUSH DAILY [facility] Last Admin: 09/07/16 09:40 Dose: 20 mg Heparin Sodium (Porcine) (Heparin -) 5,000 unit SQ BID [facility] Last Admin: 09/07/16 09:40 Dose: Not Given Oxycodone HCl (Roxicodone -) 5 mg PO Q6H PRN Last Admin: 09/06/16 20:00 Dose: 5 mg Pantoprazole Sodium (Protonix -) 20 mg PO DAILY [facility] Last Admin: 09/07/16 09:40 Dose: 20 mg Valsartan (Diovan -) 80 mg PO DAILY [facility] Last Admin: 09/07/16 09:40 Dose: 80 mg Vital Signs - 24 hr 09/06/16 09/06/16 09/06/16 14:00 18:00 22:00 Temperature 98.6 F 98.4 F 98.7 F Pulse Rate 72 75 76 Respiratory 20 19 18 Rate Blood Pressure 141/67 130/70 144/71 O2 Sat by Pulse Oximetry (%) 09/06/16 09/07/16 09/07/16 23:00 02:00 05:23 Temperature 97.3 F L 97.9 F Pulse Rate 69 75 Respiratory 20 20 16 Rate Blood Pressure 155/87 138/81 O2 Sat by Pulse 98 Oximetry (%) Intake & Output 09/05/16 09/06/16 09/07/16 09/08/16 07:59 07:59 07:59 07:59 Intake Total 300 620 200 Output Total 2000 300 Balance 300 -1380 -100 Weight 175 lb 6 oz 173 lb 12.8 oz nad, no jvd RRR, s1s2 no mrg ctab, nl eff aaox3 no le edema bl, no c/c pos dp pt no jaundice diaphoresis abd soft + tenderness, nd pos bs CBC, BMP 09/07/16 05:35 09/07/16 05:35 ecg 09/02: SVT 149 bpm, inferolateral STD tele: sr cxr: bibasilar opacities. Rt pl effusion. echo here: mild lv dil. lv mod-sev decreased fn (global). nl rv. mod ar, mild -mod mac, mod-sev mr, mod tr, rvsp 50-60. mild ao dil echo 12/2015: sev dec lvef, global hk, nl lv size, nl rv, mod mr, mild tr chest CT: reviewed images, minimal B pleural effusion, R>L. see emr for full report of other findings. a/p: 76 m on hospice with hx systolic cardiomypathy, atach/aflutter, prostate ca on chemo/hormones, cva, htn, hld here with sob/tachycardia noted to have nstemi. NSTEMI - rise and fall of trops c/w nstemi - no cp at present - pt refusing po meds and hep gtt or lovenox - d/w family who wants pt comfort care only and also does not want hep gtt/ lovenox - echo done, overall similar, slightly improved LV function, slight progression of valvular disease. - cont tele, asa, statin - has been refusing bb. con't arb - pall care consult acute exacerbation of systolic chf/sob: - cardiomyopathy first diagnosed 2015, ? tachymyopathy from asympt rapid AFL. dr givens discussed further ischemic w/u (nuclear stress test, cath) with pt and daughter on past admit and they declined further testing given his advanced prostate cancer/poor prognosis. - previously diuresed with lasix 40 iv bid, given same here. - 09/04 bp running low, no further LE edema. will hold further diuresis. Repeat bmp in am and reassess need for further IV diuresis vs. transition back to prior po regimen 40 mg/day - 09/05: Now appears euvolemic. Unable to reassess bmp (pt refusing blood draws ). chest CT report pending. - 09/06-09/07: weight down 09/06 off lasix. patient on lasix 40 mg po at home (but per family pt unaware he is taking lasix). Will resume equivalent home lasix dose (will give IV) tomorrow. patient declining blood draws for monitoring ( although agree today --> bmp stable) SVT/ prior h/o AFL with 2:1 > variable conduction--rapid HR (130s): -CHADS VASC 6--on prior admit had extensive discussion with pt and family about competing risks of stroke and bleeding; --> concern over bleeding side effects and declined AC. -Here with SVT to 140's-150's --> spontaneous conversion to SR. -patient declining toprol due to side effects. - 09/04 intermittent SVT on tele, self-limited episodes. Can give PRN IV metoprolol if needed. - 09/05-09/07: no further significant episodes of SVT. patient declining blood draws for monitoring (although agree today --> bmp stable) -cont tele htn: - pt refusing po meds. --> started clonidine patch. - 09/04 bp now running low, will stop clonidine patch. Patient today states he is amenable to resuming home valsartan 80 mg/day. If in the future refuses again, can also consider ntg patch. - 09/05-09/07: bp now normalized. resumed home valsartan. hld: - statin if pt allows prostate Ca: -per h/o CVA/TIA: -family confirms this, ? details Goals of care - patient is in hospice. Ongoing discussions with patient and family regarding risk/benefit of any interventions. stable from a CV perspective, ok to d/c telemetry.
[2016-09-07] MEDS ORDERED: POTASSIUM CHLORIDE TABS 20 MEQ TABLET.ER (FP) PO ONE (11:30)
--- NOTE | 2016-09-07 17:41 | CON.GI ---
Consult Consult Specialty:: GI Referred by:: Dr Torres Reason for Consultation:: abdominal pain - History of Present Illness Chief Complaint: SOB, CP History of Present Illness: 76 M with h/o CHF, HTN, St 4 prostate ca, CVA admitted from hospice with dyspnea and back pain. Patient also has chronic abdominal pain for the past 2 years. Family present states he often complains of abdominal pain. He is currently in the [facility] and appears comfortable. He believes his abdominal pain is related ot percocet which he takes for back pain. He has been hospice for several months. - History Source History Provided By: Patient, Family Member, Medical Record Limitations to Obtaining History: No Limitations - Past Medical History TOBACCO CLASSER: Yes: CVA (Right ) Cardio/Vascular: Yes: HTN Pulmonary: Yes: COPD Gastrointestinal: Yes: Constipation, Diverticulitis, Peptic Ulcer Disease Hepatobiliary: Yes: Cholelithiasis Renal/: Yes: Other (Prostate cancer treated with RT seeds and now hormonaltherapy (Leuprolide) for metastatic disease) Psych: Yes: Anxiety - Past Surgical History Past Surgical History: Yes: Appendectomy, Colectomy (sigmoid colectomy for diverticulitis with simultaneous appendectomy) - Alcohol/Substance Use Hx Alcohol Use: No - Smoking History Smoking history: Smoker current status UNK Have you smoked in the past 12 months: No Aproximately how many cigarettes per day: 0 If you are a former smoker, when did you quit?: 25 years ago - Social History Usual Living Arrangement: With Child ADL: Family Assistance Occupation: retired History of Recent Travel: No Home Medications - Allergies Allergies/Adverse Reactions: Allergies Allergy/AdvReac Type Severity Reaction Status Date / Time No Known Allergies Allergy Verified 12/25/15 04:22 - Home Medications Home Medications: Ambulatory Orders Aspirin Coated [Ecotrin -] 325 mg PO DAILY #0 tablet. 03/14/12 Valsartan [Diovan] 80 mg PO DAILY 12/25/15 Furosemide [Lasix -] 40 mg PO BID #60 tablet 12/30/15 Alprazolam [Xanax] 0.25 mg PO BID 09/02/16 Docusate Sodium [Colace -] 100 mg PO DAILY 09/02/16 Esomeprazole Magnesium [Nexium 24Hr] 20 mg PO DAILY 09/02/16 Oxycodone HCl/Acetaminophen [Percocet 5-325 mg Tablet] 1 tab PO Q6H 09/02/16 Family Disease History - Family Disease History Family Disease History: Diabetes: Mother ( 57 CHF), Heart Disease: Mother Physical Exam-GI Vital Signs: Vital Signs Temperature 98.2 F 09/07/16 14:00 Pulse Rate 75 09/07/16 14:00 Respiratory Rate 18 09/07/16 14:00 Blood Pressure 170/76 09/07/16 14:00 O2 Sat by Pulse Oximetry (%) 98 09/07/16 09:00 Constitutional: Yes: Well Nourished, Calm Cardiovascular: Yes: Regular Rate and Rhythm Respiratory: Yes: CTA Bilaterally Gastrointestinal Inspection: Yes: WNL ...Auscultate: Yes: Normoactive Bowel Sounds ...Palpate: Yes: Soft, Tenderness, Epigastium ...Percussion: Yes: Dullness Musculoskeletal: Yes: WNL, Muscle Weakness Labs: CBC, BMP 09/07/16 05:35 09/07/16 05:35 Hepatic Panel Total Bilirubin 0.4 mg/dL (0.2-1.0) D 09/07/16 05:35 AST 18 U/L (15-37) D 09/07/16 05:35 ALT 13 U/L (12-78) D 09/07/16 05:35 Alkaline Phosphatase 83 U/L (45-117) D 09/07/16 05:35 Albumin 2.7 g/dl (3.4-5.0) L 09/07/16 05:35 Imaging - Results Cat Scan: Report Reviewed (Single met at T10. Gallstones with no evidence of cholecystitis) Assessment/Plan 76 with above history admitted with dyspnea and back pain. Pain likely related to met. Based on CT gallstones with no obvious signs of cholecysitits Rec: R/O PUD Change protonix to 40 IVPB BID Not a candidate for procedures at this time LFTs normal-biliary issue unlikely Check lipase
[2016-09-07] MEDS ORDERED: oxyCODONE HCL 5 MG TABLET PO PRN (17:53)
[2016-09-07] MEDS ORDERED: PANTOPRAZOLE SODIUM 40 MG in SODIUM CHLORIDE 100 ML IVPB SCH (18:00)
[2016-09-07] MEDS: PANTOPRAZOLE SODIUM 40 MG/100 ML PRE-DOCKED IVPB SCH ×2 (21:04→21:05)
[2016-09-07] MEDS: ATORVASTATIN CA 20 MG TABLET (FP) PO SCH (21:05)
[2016-09-07] MEDS: oxyCODONE HCL 5 MG TABLET PO PRN (21:06)
[2016-09-07] MEDS: ACETAMINOPHEN 325 MG TABLET (FP) PO PRN (21:11)
--- NOTE | 2016-09-08 01:42 | PN ---
Progress Note, Physician History of Present Illness: Pt w/ same complaints daily: abdominal pain/back pain/dizzyness Pt seems comfortable but very anxious - Current Medication List Current Medications: Active Medications Acetaminophen (Tylenol -) 325 mg PO Q6H PRN PRN Reason: PAIN Last Admin: 09/07/16 21:11 Dose: 325 mg Alprazolam (Xanax -) 0.25 mg PO BID [facility] Last Admin: 09/07/16 21:04 Dose: Not Given Aspirin (Ecotrin -) 81 mg PO DAILY [facility] Last Admin: 09/07/16 09:39 Dose: 81 mg Atorvastatin Calcium (Lipitor -) 20 mg PO HS [facility] Last Admin: 09/07/16 21:05 Dose: Not Given Furosemide (Lasix Injection -) 20 mg IVPUSH DAILY [facility] Last Admin: 09/07/16 09:40 Dose: 20 mg Heparin Sodium (Porcine) (Heparin -) 5,000 unit SQ BID [facility] Last Admin: 09/07/16 21:04 Dose: Not Given Oxycodone HCl (Roxicodone -) 5 mg PO Q6H PRN PRN Reason: PAIN Pantoprazole Sodium (Protonix 40mg Ivpb (Pre-Docked)) 40 mg IVPB BID [facility] Last Admin: 09/07/16 21:05 Dose: Not Given Valsartan (Diovan -) 80 mg PO DAILY [facility] Last Admin: 09/07/16 09:40 Dose: 80 mg - Objective Vital Signs: Vital Signs Temperature 97.4 F L 09/07/16 17:00 Pulse Rate 71 09/07/16 17:00 Respiratory Rate 18 09/07/16 17:00 Blood Pressure 154/62 09/07/16 17:00 O2 Sat by Pulse Oximetry (%) 98 09/07/16 09:00 Constitutional: Yes: Well Nourished Eyes: Yes: WNL HENT: Yes: WNL Neck: Yes: Supple Cardiovascular: Yes: WNL, Regular Rate and Rhythm Respiratory: Yes: WNL, Regular, CTA Bilaterally Gastrointestinal: Yes: WNL, Normal Bowel Sounds, Soft Labs: CBC, BMP 09/07/16 05:35 09/07/16 05:35 Problem List - Problems (1) Abdominal pain Assessment/Plan: GI consult appreciated Protonix increased to BID Ct scan abdomen did not show any metastatic dz Code(s): R10.9 - UNSPECIFIED ABDOMINAL PAIN (2) Prostate cancer metastatic to bone Assessment/Plan: Long d/w pt about mets to T9 and T10 Will increase percocet Await onco for ?palliative RT to spine Code(s): C61 - MALIGNANT NEOPLASM OF PROSTATE C79.51 - SECONDARY MALIGNANT NEOPLASM OF BONE (3) CHF (congestive heart failure) Assessment/Plan: Acute on chronic systolic heart failure Cont IV lasix Monitor electrolytes Code(s): I50.9 - HEART FAILURE, UNSPECIFIED Qualifiers: Congestive heart failure type: unspecified congestive heart failure type Congestive heart failure chronicity: acute on chronic Qualified Code(s ): I50.9 - Heart failure, unspecified (4) HLD (hyperlipidemia) Assessment/Plan: Cont lipitor Code(s): E78.5 - HYPERLIPIDEMIA, UNSPECIFIED (5) HTN (hypertension) Assessment/Plan: Pt has been refusing meds Cont diovan Code(s): I10 - ESSENTIAL (PRIMARY) HYPERTENSION (6) NSTEMI (non-ST elevated myocardial infarction) Assessment/Plan: Cont asa/lipitor Code(s): I21.4 - NON-ST ELEVATION (NSTEMI) MYOCARDIAL INFARCTION (7) SVT (supraventricular tachycardia) Code(s): I47.1 - SUPRAVENTRICULAR TACHYCARDIA
[2016-09-08 07:27] LABS: EOSINOPHIL 8.7 % (0-4.5); MCH 31.3 pg (25.7-33.7); MCHC 34.2 g/dl (32.0-35.9); MEAN CELL VOLUME 91.8 fl (80-96); NEUTROPHILS 59.4 % (42.8-82.8); PLATELET COUNT 200 K/MM3 (134-434); RDW 13.9 % (11.9-15.9); WHITE BLOOD COUNT 5.2 K/mm3 (4.0-10.0)
[2016-09-08 08:00] LABS: ALBUMIN 2.7 g/dl (3.4-5.0); ANION GAP 12 (8-16); CALCIUM 8.8 mg/dL (8.5-10.1); CO2 28 mmol/L (21-32); COCKROFT - GAULT 84.85; CREATININE 0.8 mg/dL (0.7-1.3); GLUCOSE,RANDOM 75 mg/dL (74-106)
[2016-09-08 08:01] LABS: SGOT/AST 15 U/L (15-37); SGPT/ALT 14 U/L (12-78)
[2016-09-08 08:03] LABS: ALK PHOS 82 U/L (45-117); BILIRUBIN,TOTAL 0.5 mg/dL (0.2-1.0); TOT PROT 6.1 g/dl (6.4-8.2)
[2016-09-08] MEDS: FUROSEMIDE 40 MG/4 ML INJECTABLE VIAL IVPUSH SCH (09:50)
[2016-09-08] MEDS: VALSARTAN 80 MG TABLET (UD) PO SCH (09:50)
[2016-09-08] MEDS: ALPRAZolam 0.25 MG TABLET PO SCH (09:50)
[2016-09-08] MEDS: ASPIRIN COATED 81 MG TABLET.EC PO SCH (09:50)
[2016-09-08] MEDS: PANTOPRAZOLE SODIUM 40 MG/100 ML PRE-DOCKED IVPB SCH (09:50)
[2016-09-08] MEDS: HEPARIN NA (PORCINE) 5,000 UNITS/ML 1ML VIAL SQ SCH ×2 (10:00→23:00)
--- NOTE | 2016-09-08 12:09 | PN ---
Progress Note (short form) - Note Progress Note: cc: nstemi hpi: no cp palps, sob, dizziness. ambulating. + back pain and stomach discomfort persists. no cigs Current Medications Generic Name Dose Route Start Last Admin Trade Name Freq PRN Reason Stop Dose Admin Acetaminophen 325 mg 09/03/16 03:39 09/07/16 21:11 Tylenol - PO 325 mg Q6H PRN Administration PAIN Alprazolam 0.25 mg 09/03/16 10:00 09/08/16 09:50 Xanax - PO 0.25 mg BID [facility] Administration Aspirin 81 mg 09/07/16 10:00 09/08/16 09:50 Ecotrin - PO 81 mg DAILY [facility] Administration Atorvastatin Calcium 20 mg 09/03/16 22:00 09/07/16 21:05 Lipitor - PO Not Given HS [facility] Furosemide 20 mg 09/07/16 10:00 09/08/16 09:50 Lasix Injection - IVPUSH 20 mg DAILY [facility] Administration Heparin Sodium (Porcine) 5,000 unit 09/03/16 10:00 09/08/16 10:00 Heparin - SQ Not Given BID [facility] Oxycodone HCl 5 mg 09/07/16 17:53 Roxicodone - PO Q6H PRN PAIN Pantoprazole Sodium 40 mg 09/07/16 18:00 09/08/16 09:50 Protonix 40mg Ivpb (Pre-Docked) IVPB 40 mg BID [facility] Administration Valsartan 80 mg 09/05/16 14:30 09/08/16 09:50 Diovan - PO 80 mg DAILY [facility] Administration Vital Signs Temp 98.2 F 09/08/16 08:56 Pulse 87 09/08/16 09:50 Resp 20 09/08/16 08:56 BP 184/92 09/08/16 08:56 Pulse Ox 99 09/08/16 09:50 Intake & Output 09/07/16 09/08/16 09/08/16 23:59 11:59 23:59 Intake Total 360 Output Total 300 200 Balance 60 -200 Weight 173 lb 3.2 oz Intake: Oral 360 Output: Urine 300 200 Void 300 200 Other: Voiding Method Urinal Urinal Bowel Movement Yes # Bowel Movements 1 Weight Measurement Method Standing Scale nad, no jvd RRR, s1s2 no mrg ctab, nl eff aaox3 no le edema bl, no c/c pos dp pt no jaundice diaphoresis abd soft + tenderness, nd pos bs Laboratory Last Values WBC 5.2 K/mm3 (4.0-10.0) 09/08/16 05:35 RBC 3.70 M/mm3 (4.00-5.60) L 09/08/16 05:35 Hgb 11.6 GM/dL (11.7-16.9) L 09/08/16 05:35 Hct 33.9 % (35.4-49) L 09/08/16 05:35 MCV 91.8 fl (80-96) 09/08/16 05:35 MCHC 34.2 g/dl (32.0-35.9) 09/08/16 05:35 RDW 13.9 % (11.9-15.9) 09/08/16 05:35 Plt Count 200 K/MM3 (134-434) 09/08/16 05:35 MPV 8.0 fl (7.5-11.1) 09/08/16 05:35 Neutrophils % 59.4 % (42.8-82.8) 09/08/16 05:35 Lymphocytes % 19.6 % (8-40) 09/08/16 05:35 Monocytes % 11.3 % (3.8-10.2) H 09/08/16 05:35 Eosinophils % 8.7 % (0-4.5) H 09/08/16 05:35 Basophils % 1.0 % (0-2.0) 09/08/16 05:35 Sodium 143 mmol/L (136-145) 09/08/16 05:35 Potassium 3.6 mmol/L (3.5-5.1) 09/08/16 05:35 Chloride 103 mmol/L (98-107) 09/08/16 05:35 Carbon Dioxide 28 mmol/L (21-32) 09/08/16 05:35 Anion Gap 12 (8-16) 09/08/16 05:35 BUN 23 mg/dL (7-18) H D 09/08/16 05:35 Creatinine 0.8 mg/dL (0.7-1.3) 09/08/16 05:35 Creat Clearance w eGFR > 60 (>60) 09/08/16 05:35 Random Glucose 75 mg/dL (74-106) 09/08/16 05:35 Calcium 8.8 mg/dL (8.5-10.1) 09/08/16 05:35 Magnesium 2.5 mg/dL (1.8-2.4) H D 09/07/16 05:35 Total Bilirubin 0.5 mg/dL (0.2-1.0) D 09/08/16 05:35 AST 15 U/L (15-37) 09/08/16 05:35 ALT 14 U/L (12-78) 09/08/16 05:35 Alkaline Phosphatase 82 U/L (45-117) 09/08/16 05:35 Creatine Kinase 254 IU/L (39-308) D 09/03/16 05:35 Creatine Kinase Index 5.1 % (0.0-5.0) H 09/02/16 23:00 CK-MB (CK-2) 16.023 ng/ml (0.5-3.6) H 09/02/16 23:00 CK-MB (CK-2) Rel Index 2.7 % (0.0-5.0) 09/03/16 05:35 Troponin I 4.09 ng/ml (0.00-0.05) H* D 09/03/16 05:35 B-Natriuretic Peptide 31907.34 pg/ml (5-450) H 09/02/16 14:15 Total Protein 6.1 g/dl (6.4-8.2) L 09/08/16 05:35 Albumin 2.7 g/dl (3.4-5.0) L 09/08/16 05:35 Lipase 118 U/L (73-393) 09/07/16 18:04 ecg 09/02: SVT 149 bpm, inferolateral STD tele: sr cxr: bibasilar opacities. Rt pl effusion. echo here: mild lv dil. lv mod-sev decreased fn (global). nl rv. mod ar, mild -mod mac, mod-sev mr, mod tr, rvsp 50-60. mild ao dil echo 12/2015: sev dec lvef, global hk, nl lv size, nl rv, mod mr, mild tr chest CT: reviewed images, minimal B pleural effusion, R>L. see emr for full report of other findings. a/p: 76 m on hospice with hx systolic cardiomypathy, atach/aflutter, prostate ca on chemo/hormones, cva, htn, hld here with sob/tachycardia noted to have nstemi. NSTEMI - rise and fall of trops c/w nstemi - no cp at present - pt refusing many po meds and hep gtt or lovenox - d/w family who wants pt comfort care only and also does not want hep gtt/ lovenox - echo done, overall similar, slightly improved LV function, slight progression of valvular disease. - cont asa, statin if pt allows - has been refusing bb. con't arb - pall care consult acute exacerbation of systolic chf/sob: - cardiomyopathy first diagnosed 2015, ? tachymyopathy from asympt rapid AFL. dr givens discussed further ischemic w/u (nuclear stress test, cath) with pt and daughter on past admit and they declined further testing given his advanced prostate cancer/poor prognosis. - previously diuresed with lasix 40 iv bid, given same here. - 09/04 bp running low, no further LE edema. will hold further diuresis. Repeat bmp in am and reassess need for further IV diuresis vs. transition back to prior po regimen 40 mg/day - 09/05: Now appears euvolemic. Unable to reassess bmp (pt refusing blood draws ). chest CT report pending. - 09/06-09/08: stable vol status. patient on lasix 40 mg po at home (but per family pt unaware he is taking lasix). resumed equivalent home lasix dose as IV. SVT/ prior h/o AFL with 2:1 > variable conduction--rapid HR (130s): -CHADS VASC 6--on prior admit had extensive discussion with pt and family about competing risks of stroke and bleeding; --> concern over bleeding side effects and declined AC. -Here with SVT to 140's-150's --> spontaneous conversion to SR. -patient declining toprol due to side effects. - 09/04 intermittent SVT on tele, self-limited episodes. Can give PRN IV metoprolol if needed. - 09/05-09/08: no further significant episodes of SVT. htn: - pt refusing po meds. --> started clonidine patch. - 09/04 bp now running low, will stop clonidine patch. Patient today states he is amenable to resuming home valsartan 80 mg/day. If in the future refuses again, can also consider ntg patch. - 09/05-09/08: bp now improved. continue home valsartan. hld: - statin if pt allows prostate Ca with mets: -per /Onc h/o CVA/TIA: -family confirms this, ? details Goals of care - patient is in hospice. Ongoing discussions with patient and family regarding risk/benefit of any interventions. stable from a CV perspective, ok to d/c telemetry.
--- NOTE | 2016-09-08 14:46 | PN ---
Progress Note (short form) - Note Progress Note: Radiation Oncology (full consult to follow) 76yo w metastatic prostate cancer s/p brachytherapy seed implant ([facility]) and hormonal therapy d/c'd by pt a year ago due to intolerance (abdominal pain), with h/o chronic low back pain and more recent thoracic back pain correlating with suspicious vetebral bony changes at T10 and point tenderness on exam suggestive of metastatic process. Ideally would want bone scan to determine other areas of disease and MRI T-spine to r/o epidural or paravetebral extension. On discussion with pt and granddaughter, pt has favored conservative mgt of his cancer with minimal testing and has been on hospice care at home. Discussed option of empiric RT to T-spine to improve pain control as pt states opiate analgesics cause abdominal pain. He was seen by GI. Discussed possibility of RT on or off hospice, logistics of various fractionation schedules for palliative RT: 30Gy in 10fx, 20Gy in 5fx, 8Gy in 1 fx and potential side effects/risks including but not limited to skin reaction, fatigue , myelosuppression, myelitis, esophagitis, carditis and further compromised heart function (in setting of NSTEMI, CHR, SVT) with the higher fractional doses. Also discussed CT scan in office for 3D conformal planning to minimize cardiac exposure to higher doses of exit or scatter radiation. They will check to see if the hospice will allow RT and let us know if he wants to proceed with treatment when discharged. Our contact information was provided and they may call for an appointment to proceed. Thanks for the consult.
--- NOTE | 2016-09-08 17:06 | PN ---
Progress Note (short form) - Note Progress Note: Patient still with abdominal pain. ON BID PPI Goals of care still up in the air. Spoke with daughter. Uncertain how to proceed. Will continue PPI for now and gauge response tomorrow.
--- NOTE | 2016-09-08 18:55 | PN ---
Progress Note, Physician History of Present Illness: Pt w/ same complaints daily: abdominal pain/back pain/dizzyness Pt very upset and wants to go home - Current Medication List Current Medications: Active Medications Acetaminophen (Tylenol -) 325 mg PO Q6H PRN PRN Reason: PAIN Last Admin: 09/07/16 21:11 Dose: 325 mg Alprazolam (Xanax -) 0.25 mg PO BID [facility] Last Admin: 09/08/16 09:50 Dose: 0.25 mg Aspirin (Ecotrin -) 81 mg PO DAILY [facility] Last Admin: 09/08/16 09:50 Dose: 81 mg Atorvastatin Calcium (Lipitor -) 20 mg PO HS [facility] Last Admin: 09/07/16 21:05 Dose: Not Given Furosemide (Lasix Injection -) 20 mg IVPUSH DAILY [facility] Last Admin: 09/08/16 09:50 Dose: 20 mg Heparin Sodium (Porcine) (Heparin -) 5,000 unit SQ BID [facility] Last Admin: 09/08/16 10:00 Dose: Not Given Oxycodone HCl (Roxicodone -) 5 mg PO Q6H PRN PRN Reason: PAIN Pantoprazole Sodium (Protonix 40mg Ivpb (Pre-Docked)) 40 mg IVPB BID [facility] Last Admin: 09/08/16 09:50 Dose: 40 mg Valsartan (Diovan -) 80 mg PO DAILY [facility] Last Admin: 09/08/16 09:50 Dose: 80 mg - Objective Vital Signs: Vital Signs Temperature 97.7 F 09/08/16 14:10 Pulse Rate 76 09/08/16 14:10 Respiratory Rate 20 09/08/16 14:10 Blood Pressure 163/74 09/08/16 14:10 O2 Sat by Pulse Oximetry (%) 99 09/08/16 09:50 Constitutional: Yes: Well Nourished Eyes: Yes: WNL HENT: Yes: WNL Neck: Yes: Supple Cardiovascular: Yes: WNL, Regular Rate and Rhythm Respiratory: Yes: Rales Gastrointestinal: Yes: WNL, Normal Bowel Sounds, Soft Labs: CBC, BMP 09/08/16 05:35 09/08/16 05:35 Problem List - Problems (1) CHF (congestive heart failure) Assessment/Plan: Acute on chronic systolic heart failure Cont IV lasix Monitor electrolytes Code(s): I50.9 - HEART FAILURE, UNSPECIFIED Qualifiers: Congestive heart failure type: unspecified congestive heart failure type Congestive heart failure chronicity: acute on chronic Qualified Code(s ): I50.9 - Heart failure, unspecified (2) Abdominal pain Assessment/Plan: Cont protonix BID Ct scan abdomen did not show any metastatic dz Code(s): R10.9 - UNSPECIFIED ABDOMINAL PAIN (3) Prostate cancer metastatic to bone Assessment/Plan: Pt w/ mets to T9 and T10 Spoke to family and pt about palliative RT Family still undecisive about hospice Will check MRI spine Code(s): C61 - MALIGNANT NEOPLASM OF PROSTATE C79.51 - SECONDARY MALIGNANT NEOPLASM OF BONE (4) HLD (hyperlipidemia) Code(s): E78.5 - HYPERLIPIDEMIA, UNSPECIFIED (5) HTN (hypertension) Code(s): I10 - ESSENTIAL (PRIMARY) HYPERTENSION (6) NSTEMI (non-ST elevated myocardial infarction) Code(s): I21.4 - NON-ST ELEVATION (NSTEMI) MYOCARDIAL INFARCTION (7) SVT (supraventricular tachycardia) Code(s): I47.1 - SUPRAVENTRICULAR TACHYCARDIA
[2016-09-08] MEDS: ACETAMINOPHEN 325 MG TABLET (FP) PO PRN (20:39)
--- NOTE | 2016-09-08 21:24 | PN ---
Progress Note (short form) - Note Progress Note: Patient seen and examined 76 y/o patient with metastatic prostate cancer, had beenon hospice, Now withback pain. Was reluctant to get any hormonal therapy in the past. Ongoing discussions with family regarding goals of care Rad-onc consult
[2016-09-09] MEDS: ATORVASTATIN CA 20 MG TABLET (FP) PO SCH (01:08)
[2016-09-09] MEDS: ALPRAZolam 0.25 MG TABLET PO SCH ×2 (01:09→10:59)
[2016-09-09] MEDS: PANTOPRAZOLE SODIUM 40 MG/100 ML PRE-DOCKED IVPB SCH ×2 (01:30→10:56)
[2016-09-09] MEDS: HEPARIN NA (PORCINE) 5,000 UNITS/ML 1ML VIAL SQ SCH (10:54)
[2016-09-09] MEDS: FUROSEMIDE 40 MG/4 ML INJECTABLE VIAL IVPUSH SCH (10:55)
[2016-09-09] MEDS: ASPIRIN COATED 81 MG TABLET.EC PO SCH (10:55)
[2016-09-09] MEDS: VALSARTAN 80 MG TABLET (UD) PO SCH (10:55)
[2016-09-09 11:21] VITALS: PULSE 77
--- NOTE | 2016-09-09 12:06 | PN ---
Progress Note (short form) - Note Progress Note: cc: nstemi hpi: no cp palps, sob, dizziness. ambulating. + back pain and stomach discomfort persists. no cigs Current Medications Generic Name Dose Route Start Last Admin Trade Name Freq PRN Reason Stop Dose Admin Acetaminophen 325 mg 09/03/16 03:39 09/08/16 20:39 Tylenol - PO 325 mg Q6H PRN Administration PAIN Alprazolam 0.25 mg 09/03/16 10:00 09/09/16 10:59 Xanax - PO 0.25 mg BID [facility] Administration Aspirin 81 mg 09/07/16 10:00 09/09/16 10:55 Ecotrin - PO 81 mg DAILY [facility] Administration Atorvastatin Calcium 20 mg 09/03/16 22:00 09/09/16 01:08 Lipitor - PO Not Given HS [facility] Furosemide 20 mg 09/07/16 10:00 09/09/16 10:55 Lasix Injection - IVPUSH 20 mg DAILY [facility] Administration Heparin Sodium (Porcine) 5,000 unit 09/03/16 10:00 09/09/16 10:54 Heparin - SQ Not Given BID [facility] Oxycodone HCl 5 mg 09/07/16 17:53 09/08/16 20:40 Roxicodone - PO 5 mg Q6H PRN Administration PAIN Pantoprazole Sodium 40 mg 09/07/16 18:00 09/09/16 10:56 Protonix 40mg Ivpb (Pre-Docked) IVPB Not Given BID [facility] Valsartan 80 mg 09/05/16 14:30 09/09/16 10:55 Diovan - PO 80 mg DAILY [facility] Administration Vital Signs Period Temp Pulse Resp BP Sys/[place] Pulse Ox Last 24 Hr 97.5 F-98.0 F 76-86 18-20 152-166/71-85 95-97 nad, no jvd RRR, s1s2 no mrg ctab, nl eff aaox3 no le edema bl, no c/c pos dp pt no jaundice diaphoresis abd soft + tenderness, nd pos bs CBC, BMP 09/08/16 05:35 09/08/16 05:35 ecg 09/02: SVT 149 bpm, inferolateral STD tele: sr, occ pvcs cxr: bibasilar opacities. Rt pl effusion. echo here: mild lv dil. lv mod-sev decreased fn (global). nl rv. mod ar, mild -mod mac, mod-sev mr, mod tr, rvsp 50-60. mild ao dil echo 12/2015: sev dec lvef, global hk, nl lv size, nl rv, mod mr, mild tr chest CT: reviewed images, minimal B pleural effusion, R>L. see emr for full report of other findings. a/p: 76 m on hospice with hx systolic cardiomypathy, atach/aflutter, prostate ca on chemo/hormones, cva, htn, hld here with sob/tachycardia noted to have nstemi. NSTEMI - rise and fall of trops c/w nstemi - no cp at present - pt refusing many po meds and hep gtt or lovenox - d/w family who wants pt comfort care only and also does not want hep gtt/ lovenox - echo done, overall similar, slightly improved LV function, slight progression of valvular disease. - cont asa, statin if pt allows - has been refusing bb. con't arb - pall care consult acute exacerbation of systolic chf/sob: - cardiomyopathy first diagnosed 2015, ? tachymyopathy from asympt rapid AFL. dr givens discussed further ischemic w/u (nuclear stress test, cath) with pt and daughter on past admit and they declined further testing given his advanced prostate cancer/poor prognosis. - previously diuresed with lasix 40 iv bid, given same here. - 09/04 bp running low, no further LE edema. will hold further diuresis. Repeat bmp in am and reassess need for further IV diuresis vs. transition back to prior po regimen 40 mg/day - 09/05: Now appears euvolemic. Unable to reassess bmp (pt refusing blood draws ). chest CT report pending. - 09/06-09/09: stable vol status. patient on lasix 40 mg po at home, can resume SVT/ prior h/o AFL with 2:1 > variable conduction--rapid HR (130s): -CHADS VASC 6--on prior admit had extensive discussion with pt and family about competing risks of stroke and bleeding; --> concern over bleeding side effects and declined AC. -Here with SVT to 140's-150's --> spontaneous conversion to SR. -patient declining toprol due to side effects. - 09/04 intermittent SVT on tele, self-limited episodes. Can give PRN IV metoprolol if needed. - 09/05-09/09: no further significant episodes of SVT. htn: - pt refusing po meds. --> started clonidine patch. - 09/04 bp now running low, will stop clonidine patch. Patient today states he is amenable to resuming home valsartan 80 mg/day. If in the future refuses again, can also consider ntg patch. - 09/05-09/09: bp now improved. continue home valsartan. hld: - statin if pt allows prostate Ca with mets: -per /Onc h/o CVA/TIA: -family confirms this, ? details Goals of care - patient is in hospice. Ongoing discussions with patient and family regarding risk/benefit of any interventions. stable from a CV perspective, ok to d/c telemetry.
[2016-09-09 14:32] VITALS: BP 160/84; TEMP 98.6
--- NOTE | 2016-09-09 14:47 | CONS ---
DATE OF CONSULTATION: 09/08/2016 REFERRING PHYSICIAN: Eloise Fortune MD REASON FOR CONSULTATION: Back pain. HISTORY OF PRESENT ILLNESS: The patient is a 76-year-old gentleman with a history of prostate cancer, who was admitted for shortness of breath, back and abdominal pain, and now managed for CHF exacerbation, non-MODE myocardial infarction, and supraventricular tachycardia on telemetry. According to the patient, his prostate cancer was diagnosed approximately 5 years ago, and he received external beam radiation therapy with a prostate seed implant at [facility]. He subsequently had metastatic recurrence according to the granddaughter who stated that he received a few hormonal injections, but due to abdominal pain he felt to be related to the medication, he elected to discontinue treatments approximately 1 year ago. He has elected to receive hospice care at home. More recently, he has noted increasing lower thoracic spinal pain associated with muscle spasms. He has been given morphine and Percocet which have had mild relief and also have caused significant abdominal discomfort. On this admission, CT of the chest, abdomen, and pelvis showed moderate left- sided hydronephrosis; cholelithiasis; sclerotic changes of T10, suspicious for metastatic disease; left lower lobe and left upper lobe pulmonary nodules; bilateral pleural effusions; pretracheal enlarged mediastinal lymph node; and, in addition, sclerotic changes in T9, and there is bilateral paravertebral soft tissue thickening at the T10 level. There is developing left hydroureteronephrosis. They inform me that he favors conservative management in regard to treatment as he is now on home hospice. He denies numbness or tingling in the extremities. He has bilateral weakness in the legs but no acute changes in his bowel or bladder habits. He has no difficulty emptying his bladder and has no constipation. His main complaint is constant [id number] spine pain despite analgesics. He also has abdominal pain and has been seen by the GI service. He is followed by the Cardiology, Oncology, and Palliative Care services. We are asked to evaluate for palliative radiation therapy. PAST MEDICAL HISTORY: Peptic ulcer disease, diverticulitis, systolic CHF, COPD, non-STEMI, SVT, hypertension, cholelithiasis, hyperlipidemia, CVA, anxiety, stage IV prostate cancer status post prostate seed implant and hormonal therapy, sigmoid colectomy for diverticulitis, and appendectomy. Skin cancer on nose resected with flap reconstruction from the forehead. ALLERGIES: No known drug allergies. CURRENT MEDICATIONS: Diovan, heparin subcutaneous, Xanax, Lipitor, Lasix, aspirin 81 mg, oxycodone p.r.n., Protonix. SOCIAL HISTORY: He is retired. He lives with his . He does not consume alcohol. He smoked for 30 years and quit about 20 years ago. FAMILY HISTORY: Noncontributory. REVIEW OF SYSTEMS: No change in appetite, weight loss, nausea, vomiting. In addition to that noted previously, the remainder of review of systems is negative. PHYSICAL EXAMINATION: General: Well-appearing, elderly male, appearing his chronological age, in no acute distress. His granddaughter is present. Vital Signs: Temperature 98.2, blood pressure 184/92, pulse 76, respiratory rate 18, SaO2 of 96% on 2 L face mask. HEENT: Healed forehead scar with surgical defect, reconstructed graft on nose from skin cancer surgery, Moist mucous membranes. Anicteric sclerae. Clear oral cavity. Neck: No adenopathy. Chest: Clear. No axillary adenopathy. Abdomen: Well-healed surgical incisions. Soft, nontender. Extremities: Normal range of motion. Musculoskeletal: Point tenderness around T8-10 without paraspinal mass. Neurologic: Grossly nonfocal, intact sensation to light touch, no sensory level , no motor deficit. LABORATORY DATA: WBC 5.2, hemoglobin 11.6, platelet count 200,000. Electrolytes within normal limits. BUN 23, creatinine 0.8, albumin 2.7. Liver function tests within normal limits. RADIOLOGIC DATA: CT chest, abdomen, and pelvis: See HPI. IMPRESSION: A 76-year-old gentleman with history of metastatic prostate cancer status post external beam and brachytherapy seed implant on hormonal therapy until 1 year ago, on home hospice. He has intractable back pain that correlates with a sclerotic lesion at T9 and T10 consistent with bone metastases. There may be paravertebral extension, and ideally, an MRI of the thoracic spine would be needed to rule out epidural tumor extension and impending cord compression. A bone scan would be helpful to rule out additional sites of disease in the spine. Patient has favored minimal testing and treatment up. He is now managed for acute cardiac issues which seem to be stabilized per Cardiology. I discussed the option of empiric radiation therapy to the thoracic spine to improve pain control, as the patient states he has analgesic intolerance from the abdominal pain. He was seen by the GI service. We discussed the possibility of radiation therapy off (or less likely on) hospice care, as well as the logistics of various fractionation schedules including 30 Gy in 10 fractions, 20 Gy in 5 fractions, and 8 Gy in 1 fraction with associated side effects/risks including, but not limited to, skin reaction, fatigue, myelosuppression, myelitis, esophagitis, carditis, and further compromise of heart function in the setting of recent non-MODE myocardial infarction, congestive heart failure, and supraventricular tachycardia, especially with higher fractional doses. I discussed 3D conformal planning which will help to minimize cardiac exposure to higher doses of radiation. He and his daughter seem interested in the option of radiation therapy and will check if the hospice will allow radiation therapy, and then will decide if he wishes to proceed upon discharge. I provided our contact information, and can call for an appointment if treatment is desired. Thank you for asking me to participate in the care of this patient. YOLA GUZMÁN M.D. [id number] MTDD
[2016-09-10] MEDS ORDERED: cloNIDine-TTS 0.2 MG/24 HOURS PATCH.TDWK TD SCH (10:00)
[2016-09-10] MEDS ORDERED: FUROSEMIDE 40 MG TABLET (FP) PO SCH (10:00)
--- NOTE | 2016-09-11 19:22 | EKG ---
Test Reason : Blood Pressure : / mmHG Vent. Rate : 087 BPM Atrial Rate : 087 BPM P-R Int : 128 ms QRS Dur : 090 ms QT Int : 412 ms P-R-T Axes : 018 023 138 degrees QTc Int : 495 ms SINUS RHYTHM WITH PREMATURE SUPRAVENTRICULAR COMPLEXES PROLONGED QT ABNORMAL ECG WHEN COMPARED WITH ECG OF 02-SEP-2016 14:30, PREMATURE SUPRAVENTRICULAR COMPLEXES ARE NOW PRESENT VENT. RATE HAS DECREASED BY [address] LESS DEPRESSED IN ANTERIOR LEADS NONSPECIFIC T WAVE ABNORMALITY, IMPROVED IN INFERIOR LEADS Confirmed by SAL BRANCH MD ([id number]) on 09/11/2016 7:22:22 PM Referred By: Confirmed By:SAL BRANCH MD
== END 2016-09-09 18:33 | disposition home health service (06) | DRG 280 ==
LOC: JER 13:13 → SUPCPDRO 13:13 → JERBED 17:22 → J4W 19:15
PROVIDERS: ADMIT Internal Medicine; ATTEND Internal Medicine
DX: I21.4 Non-ST elevation (NSTEMI) myocardial infarction (principal); I50.23 Acute on chronic systolic (congestive) heart failure; I47.1 Supraventricular tachycardia; C79.51 Secondary malignant neoplasm of bone; I42.9 Cardiomyopathy, unspecified; E78.5 Hyperlipidemia, unspecified; I11.0 Hypertensive heart disease with heart failure; C61 Malignant neoplasm of prostate; Z86.73 Personal history of transient ischemic attack (TIA), and cerebral infarction without residual deficits; R10.9 Unspecified abdominal pain
CPT/HCPCS: 36415; 71010-TC; 71260-TC; 72100-TC; 74178-TC; 80053; 82550; 82553; 83690; 83735; 83880; 84132; 84484; 85025; 86301; 93005; 93010; 93306-TC; 94660; 99285-25; J1644; Q9967